=== PATIENT | female | born 1955 | race Caucasian/White ===

== ENCOUNTER 2018-03-15 22:51 | Inpatient (IN) | payer OTHER, MEDICAID, SELFPAY ==
[2018-03-15 22:55] VITALS: BP 146/44; PULSE 98; RESP 12; TEMP 36.5; O2SAT 100; BMI 28.1
--- NOTE | 2018-03-15 23:25 | DI.CT.S_ITS ---
PROCEDURE: CT ABDOMEN PELVIS W CON INDICATIONS: abdominal pain, vomiting/diarrhea/history of volvulus TECHNIQUE: After the administration of intravenous contrast, 5 mm thick sections acquired from the diaphragm to the symphysis. 5 mm coronal and sagittal reformats were acquired. For radiation dose reduction, the following was used: automated exposure control, adjustment of mA and/or kV according to patient size. COMPARISON: None. FINDINGS: Image quality: Excellent. ABDOMEN: Lung bases: Lung bases are clear. Heart size is normal. Solid organs: Liver is normal in size and enhancement. There is a 2.2 cm hepatic cyst identified near the left lateral margin of the lateral segment of the left hepatic lobe.Gallbladder appears mildly distended likely related to fasting state. Biliary system is non dilated. Pancreas enhances normally. Minimal prominence of the proximal segment of the main pancreatic duct without suspicious mass lesions in the pancreatic head or joellen hepatis. Spleen is normal in size and enhancement. No adrenal nodules. Kidneys demonstrate normal size and enhancement, without hydronephrosis. Peritoneum and bowel: There is distention of the stomach without abnormal thickening or perigastric inflammatory change. Numerous loops of dilated small bowel with scattered air-fluid levels identified in the mid abdomen with abrupt transition point in the lower midline abdomen just proximal to surgical anastomotic site from prior partial small bowel resection. The small bowel distal to this anastomosis appears decompressed as well as the colon. There is minimal stranding surrounding a short segment of small bowel proximal to the anastomosis. Otherwise, there appears to be symmetric normal enhancement. No suspicious bowel wall thickening. There is a small amount of scattered free fluid, mostly in the pelvis. No free air seen. Nodes and vessels: No retroperitoneal or mesenteric adenopathy by size criteria. Aorta and inferior vena cava are normal in size. Miscellaneous: No ventral hernias. PELVIS: Genitourinary: Bladder wall thickness is normal. Miscellaneous: No inguinal hernias or adenopathy. Bones: No suspicious bony lesions. No vertebral body compression fractures. IMPRESSION: 1. Small bowel obstruction with transition point identified just distal to the anastomotic suture line from prior bowel resection noted in the lower midline abdomen/pelvis, slightly left of midline. Findings are suggestive of small bowel obstruction secondary to adhesions. 2. Other chronic findings as above. Preliminary findings were relayed to the emergency department staff at 0133 hrs on 03/16/2018. Dictated by: Sancho Vieira M.D. on 03/16/2018 at 6:44 Approved by: Sancho Vieira M.D. on 03/16/2018 at 7:07
[2018-03-15 23:30] VITALS: BP 136/71; PULSE 88; RESP 17; O2SAT 98
--- NOTE | 2018-03-15 23:32 | ED_ITS ---
HPI - Abdominal Pain General Chief Complaint: Abdominal Pain Stated Complaint: ABD PAIN Time Seen by Provider: 03/15/18 23:15 Source: patient and family () Mode of arrival: ambulatory Limitations: no limitations History of Present Illness HPI narrative: This is a 62-year-old female comes to the emergency department with complaint of abdominal pain patient states she was having a lot of gas earlier this week took a lot of Gas-X which caused constipation. She states been drinking a bottle of magnesium citrate which then caused a of diarrhea yesterday. Patient continues to some diarrhea today but then started having vomiting evening increasing abdominal pain. She points to the epigastric area but states it radiates into the mid abdomen as well. She states she had similar pain once before when she had her got twisted up and to have a portion chopped out. Patient states she has continued to have vomiting here in the department and does have a bag of emesis with food in it in the room. She has not had any fevers, no chest pain or shortness of breath. The pain is not moving in location. She states it feels sharp and twisting. She denies any urinary issues other than having decreased urine output but states she has not had much fluids recently. She has not had any black or blood in her stool. She denies any other abdominal surgeries. She takes medication for blood pressure, anxiety and occasionally from migraines. Related Data Home Medications Medication Instructions Recorded Confirmed nortriptyline 75 mg PO HS #0 01/05/16 03/16/18 propranolol 20 mg PO DAILY #0 01/05/16 03/16/18 sumatriptan succinate [Imitrex] 100 mg PO PRN PRN #0 01/05/16 03/16/18 Allergies Allergy/AdvReac Type Severity Reaction Status Date / Time No Known Drug Allergies Allergy Verified 03/15/18 23:06 Review of Systems Review of Systems ROS Unobtainable: All systems reviewed & are unremarkable except as noted in HPI and below Constitutional Denies chills and Denies fever(s) Cardiovascular Denies chest pain, Denies dyspnea and Denies dyspnea on exertion Respiratory Denies dyspnea and Denies dyspnea on exertion Gastrointestinal Gastrointestinal: Reports abdominal pain, Denies melena, Denies hematochezia, Reports change in bowel habits, Reports diarrhea, Reports nausea, Reports vomiting and Denies hematemesis Genitourinary Denies hematuria, Denies urinary frequency, Denies dysuria, Denies flank pain, Denies urinary incontinence, Denies urinary urgency and Reports other (decrease in urine output) Musculoskeletal Denies back pain PFSH Medical History Diabetes (Acute) Hypertension (Acute) Family History Brother Hypertension Grandfather Diabetes mellitus Mother Diabetes mellitus Hypertension Sister Hypertension Social History Smoking Status: Unknown if ever smoked substance use type: marijuana Exam Narrative Exam Narrative: GENERAL: Alert and oriented x three, thin, well-appearing female in moderate distress. Patient vomited twice while I was in the room. HEENT: Head normocephalic, atraumatic, EOMI, pupils reactive, face symmetric, moist mucous membranes NECK: Supple, full range of motion CARDIOVASCULAR: Regular rate and rhythm without murmurs, rubs or gallops. RESPIRATORY: Breath sounds equal bilaterally, no wheezes rales or rhonchi. ABDOMEN: Soft, moderate epigastric and bilateral upper quadrant tenderness. Hypoactive bowel sounds all 4 quadrants. No guarding or rebound, rigidity, no mass : No CVA tenderness. EXTREMITIES: Normal range of motion, no clubbing or edema. Neurovascularly intact NEUROLOGICAL: Cranial nerves II through XII grossly intact. Moving all extremities SKIN: Warm, dry, no petechiae, no rashes or lesions. Initial Vital Signs Initial Vital Signs: Vital Signs Temperature 97.7 F 03/15/18 22:55 Pulse Rate 98 H 03/15/18 22:55 Respiratory Rate 12 03/15/18 22:55 Blood Pressure 146/44 H 03/15/18 22:55 Pulse Oximetry 100 03/15/18 22:55 Course Orders Ordered: ED Orders 03/15/18 23:25 CT abdomen pelvis w con Stat 03/15/18 23:30 Complete Blood Count AUTO DIFF Stat Comprehensive Metabolic Panel Stat Lactate (Lactic Acid) Stat Lipase Stat Discontinued Medications Sodium Chloride (Normal Saline 0.9%) 1,000 mls @ 1,000 mls/hr IV BOLUS ONE Stop: 03/16/18 00:15 Last Infusion: 03/16/18 01:10 Dose: 0 mls/hr Admin: 03/15/18 23:33 Dose: 1,000 mls/hr Morphine Sulfate (Morphine) 4 mg IV NOW ONE Stop: 03/15/18 23:26 Last Admin: 03/15/18 23:33 Dose: 4 mg Morphine Sulfate (Morphine) 4 mg IV NOW ONE Stop: 03/16/18 01:09 Last Admin: 03/16/18 01:22 Dose: 4 mg Ondansetron HCl (Zofran) 4 mg IV NOW ONE Stop: 03/15/18 23:26 Last Admin: 03/15/18 23:33 Dose: 4 mg Ondansetron HCl (Zofran) 4 mg IV NOW ONE Stop: 03/16/18 01:09 Last Admin: 03/16/18 01:22 Dose: 4 mg Vital Signs - 8 hr 03/15/18 22:55 03/15/18 23:30 03/16/18 00:46 Temperature 97.7 F Pulse Rate 98 H 88 85 Respiratory Rate 12 17 Blood Pressure 146/44 H Blood Pressure [Right Arm] 136/71 113/45 L Pulse Oximetry 100 98 98 03/16/18 01:00 03/16/18 02:00 Temperature Pulse Rate 85 80 Respiratory Rate 15 16 Blood Pressure Blood Pressure [Right Arm] 127/64 135/66 Pulse Oximetry 100 100 MDM - Abdominal Pain Lab Data Attestation: I reviewed the patient's lab results. Result diagrams: 03/15/18 23:30 03/15/18 23:30 Lab Results 03/15/18 03/15/18 03/15/18 Range/Units 23:30 23:30 23:30 WBC 12.8 H (4.5-11.0) X10^3/uL RBC 4.95 (4.0-5.2) X10^6/uL Hgb 14.4 (12.0-16.0) g/dL Hct 42.8 (36-46) % MCV 86.5 (80-100) fL MCH 29.1 (26-34) PG MCHC 33.6 (30-36) % RDW 12.8 (11.6-14.8) % Plt Count 384 (150-400) X10^3/uL Neut % (Auto) 72.2 (50-75) % Lymph % (Auto) 20.1 L (25-40) % [place] % (Auto) 6.7 (3-14) % Eos % (Auto) 0.5 L (2-4) % Baso % (Auto) 0.5 (0-2) % Neut # (Auto) 9200 H (4667-8703) /uL Lymph # (Auto) 2600 (3250-8414) /uL [place] # (Auto) 900 (0-900) /uL Eos # (Auto) 100 (0-450) /uL Baso # (Auto) 100 (0-100) /uL Sodium 138 (137-145) mmol/L Potassium 4.1 (3.4-5.1) mmol/L Chloride 101 (98-107) mmol/L Carbon Dioxide 26 (22-32) mmol/L BUN 13 (7-17) mg/dL Creatinine 0.60 (0.52-1.04) mg/dL Estimated GFR > 60.0 (>60) mL/min BUN/Creatinine Ratio 21.7 (6-22) Glucose 121 H (80-110) mg/dL Lactate 0.9 (0.7-2.1) mmol/L Calcium 10.0 (8.4-10.2) mg/dL Total Bilirubin 0.6 (0.2-1.3) mg/dL AST 20 (14-36) IU/L ALT 25 (9-52) IU/L Alkaline Phosphatase 97 (38-126) U/L Total Protein 7.9 (6.3-8.2) g/dL Albumin 4.7 (3.5-5.0) g/dL Globulin 3.2 (1.7-4.1) g/dL Albumin/Globulin Ratio 1.5 (1.0-2.8) Lipase 80 (23-300) U/L Imaging Data CT scan - abdomen: Radiologist's impression: 1.5 x 2 cm simple cyst left lobe of the liver. Fatty infiltration. Dilated fluid low filled loops of small bowel with scattered air-fluid levels and a pattern suggesting small bowel obstruction. Anastomotic changes are noted of small bowel in the pelvis. Just distal to the anastomosis there is an abrupt luminal narrowing suggesting obstruction due to adhesion. No obstructive or inflammatory process of the colon is identified. No free fluid is noted dependently in the pelvis. No free air. MDM Narrative Medical decision making narrative: Patient's pain and vomiting improved shortly after morphine and Zofran were given. Patient lab work shows a slight elevation in white count but no other major changes in electrolytes, renal function or hemoglobin. Patient had a CT which does show findings concerning for bowel obstruction. Patient's pain did start to return and she received a 2nd dose of morphine and Zofran. Spoke with our [facility] A[facility]ST Don who accepts patient. He did ask for surgical consultation and I spoke with Dr. Berg who says he will see her in the morning. He did review patient's CT imaging as well as radiology report and recommend an NG tube. Discharge Plan Departure Patient Disposition: Admitted as Observation Clinical Impression: Partial bowel obstruction Admit Date/Time: 03/16/18 02:04 Admit Provider: Troy Ochoa
[2018-03-15] MEDS: ONDANSETRON 4 MG/2 ML INJ IV (23:33)
[2018-03-15] MEDS: SODIUM CHLORIDE 0.9% 1,000 ML 1000 ML IV (23:33)
[2018-03-15] MEDS: MORPHINE 4 MG/ML INJ IV (23:33)
[2018-03-15 23:50] LABS: Add Manual Diff / Slide Review NO; Basophils Absolute Auto 100 /uL (0-100); Basophils Percent Auto 0.5 % (0-2); Eosinophils Absolute Auto 100 /uL (0-450); Eosinophils Percent Auto 0.5 % (2-4); Hematocrit 42.8 % (36-46); Hemoglobin 14.4 g/dL (12.0-16.0); Lymphocytes Absolute Auto 2600 /uL (1100-4500); Lymphocytes Percent Auto 20.1 % (25-40); Mean Corpuscular HGB Conc 33.6 % (30-36); Mean Corpuscular Hemoglobin 29.1 PG (26-34); Mean Corpuscular Volume 86.5 fL (80-100); Monocytes Absolute Auto 900 /uL (0-900); Monocytes Percent Auto 6.7 % (3-14); Neutrophils Absolute Auto 9200 /uL (1500-7000); Neutrophils Percent Auto 72.2 % (50-75); Platelet Count 384 X10^3/uL (150-400); Red Blood Cell Count 4.95 X10^6/uL (4.0-5.2); Red Cell Distribution Width 12.8 % (11.6-14.8); White Blood Cell Count 12.8 X10^3/uL (4.5-11.0)
[2018-03-15 23:58] LABS: Lactate (Lactic Acid) 0.9 mmol/L (0.7-2.1)
[2018-03-15 23:59] LABS: Alanine Aminotransferase 25 IU/L (9-52); Albumin 4.7 g/dL (3.5-5.0); Albumin Globulin Ratio 1.5 (1.0-2.8); Alkaline Phosphatase 97 U/L (38-126); Aspartate Aminotransferase 20 IU/L (14-36); BUN Creatinine Ratio 21.7 (6-22); Bilirubin Total 0.6 mg/dL (0.2-1.3); Blood Urea Nitrogen 13 mg/dL (7-17); Carbon Dioxide 26 mmol/L (22-32); Chloride 101 mmol/L (98-107); Estimated Glomerular Filt Rate > 60.0 mL/min (>60); Globulin 3.2 g/dL (1.7-4.1); Glucose 121 mg/dL (80-110); HEMOLYSIS < 15 (0-50); Lipase 80 U/L (23-300); Potassium 4.1 mmol/L (3.4-5.1); Sodium 138 mmol/L (137-145); Total Protein 7.9 g/dL (6.3-8.2)
[2018-03-16] VITALS (12 sets, daily range): BP systolic 107–155; BP diastolic 45–95; PULSE 71–98; RESP 15–20; TEMP 36.4–36.7; O2SAT 94–100; BMI 27.7
--- NOTE | 2018-03-16 | DI.RAD.S_ITS ---
PROCEDURE: FL SMALL BOWEL FOLLOW THROUGH INDICATIONS: SBFT TIMED EXAMS COMPARISON: CT abdomen and pelvis dated 03/15/2018. 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 Oral contrast was administered for recent CT abdomen and pelvis dated 03/15/2018. Oral contrast has also been placed in the stomach via nasogastric tube. No suspicious abdominal calcifications. Visualized solid organ contours appear normal. No suspicious bony abnormalities. Small bowel: There appears to be transit of some oral contrast to the level of the splenic flexure at the end of the study. Oral contrast has cleared the stomach. Mucosal folds are smooth and of normal thickness. No strictures, intraluminal masses, or extrinsic mass effects are noted. There are several surgical clips in the lower abdomen with bilateral tubal ligation clips identified in the pelvis. The surgical anastomosis is not well-visualized on this study. IMPRESSION: Persistent but decreased prominence of distended small bowel with some transit of oral contrast to the level of the splenic flexure. Findings are compatible with ileus versus partial small bowel obstruction. Consider repeat imaging of the abdomen to document continued transit of oral contrast. Dictated by: Sancho Vieira M.D. on 03/16/2018 at 22:47 Approved by: Sancho Vieira M.D. on 03/16/2018 at 23:01
[2018-03-16] MEDS: ONDANSETRON 4 MG/2 ML INJ IV ×4 (01:22→20:06)
[2018-03-16] MEDS: MORPHINE 4 MG/ML INJ IV (01:22)
--- NOTE | 2018-03-16 02:48 | DI.RAD.S_ITS ---
PROCEDURE: XR CHEST 1V INDICATIONS: NG Tube placement verification. TECHNIQUE: One view of the chest was acquired. COMPARISON: None. FINDINGS: Surgical changes and devices: Nasogastric tube is in place with distal tip extending below the level of the diaphragm, projecting over the left lateral upper abdomen.. Lungs and pleura: No pleural effusions or pneumothorax. Lungs are clear. Mediastinum: Mediastinal contours appear normal. Heart size is normal. Bones and chest wall: No suspicious bony lesions. Overlying soft tissues appear unremarkable. IMPRESSION: Nasogastric tube placement with the distal tip and side-port extending below the level of the diaphragm. Chest without acute cardiopulmonary abnormalities. Dictated by: Sancho Vieira M.D. on 03/16/2018 at 7:43 Approved by: Sancho Vieira M.D. on 03/16/2018 at 7:44
--- NOTE | 2018-03-16 03:25 | P.HP_ITS ---
History of Present Illness Date Patient Seen: 03/16/18 Time Patient Seen: 02:11 Chief complaint: ABD PAIN Narrative: Lucas Palma is a 62-year-old female patient with a history of prior small bowel obstruction requiring surgical intervention some 20 years ago , hypertension and migraines who presents today the ER with complaints of abdominal pain nausea and vomiting. The patient reports that she had been feeling listless for approximately 2 weeks but approximately 4 days ago the patient developed ?bad gas? and bloating for which she took Gas-X. At that time the patient relies she had not had a bowel movement for 3 days and took magnesium citrate to which she reports a good response having soft yellow stool. Her symptoms became progressive and worsened today developing nausea and vomiting. Her last bowel movement was today approximately 11:30 she describes as liquid. Patient also endorses history of migraine headaches which will occur approximately 2-3 times per month for which she takes sumatriptan. She also describes history of hypertension for which she takes propranolol and anxiety for which she takes nortriptyline. She had [place] history of diabetes that is diet controlled. The patient denies current symptoms of fevers or chills, headaches or dizziness. She has no shortness of breath or chest pain. In the ER the patient is received morphine and Zofran with decrease in symptoms. A CT of the abdomen was obtained revealing a small bowel obstruction with a transition point distal the patient's small-bowel anastomosis in the pelvis described as left of midline, small amount of free fluid with no free air. Lab work obtained in the ER showed an elevated white count at 12.8, and H& H of 14.4 and 42.8 respectively. On chemistry she has a glucose of 121 with remainder of the panel within normal limits. Her LFTs within normal as well as lipase normal at 80. Lactate is 0.9. was contacted by the ER for consultation and will evaluate the patient in the morning. Patient History Medical History Anxiety (Acute) Diabetes (Acute) History of small bowel obstruction (Acute) Hypertension (Acute) Migraine headache (Acute) Surgical History History of appendectomy (Acute) History of bunionectomy of both great toes (Acute) History of tubal ligation (Acute) Family & Social History Family History: Reviewed 03/16/18 by ESTEILTA Crabtree Social History: The patient is single and lives in a single family home with her significant other. They have been together for 18 years. Patient has a daughter who resides in [place] and his son who resides locally. The patient is currently working in [employer]. Advanced directive: The patient has no formal advanced directive however does needs her significant other, Graeme Lott, and her son Chinedu Harrell, to be surrogate decision makers Safety & Behavioral: Feels Safe in Current Yes Environment Tobacco & Substance use: Smoking Status Unknown if ever smoked Comment: . Meds Home Medications Medication Instructions Recorded Confirmed Type nortriptyline 75 mg PO HS #0 01/05/16 03/16/18 History propranolol 20 mg PO DAILY #0 01/05/16 03/16/18 History sumatriptan succinate [Imitrex] 100 mg PO PRN PRN #0 01/05/16 03/16/18 History Allergies Allergy/AdvReac Type Severity Reaction Status Date / Time No Known Drug Allergies Allergy Verified 03/15/18 23:06 Review of Systems Review of Systems Constitutional: Positive for fatigue and malaise, poor appetite, Denies fevers , chills, sweats, stable weight Eyes: Positive for glasses, Denies visual changes, denies floaters, diplopia ENT: Denies headaches, hearing changes, ear pain, no nasal congestion, rhinorrhea, no dysphagia, sore throat or dentalgia, no neck stiffness or pain Respiratory: Denies SOB, cough, exertional dyspnea, wheezing Cardiovascular: Positive for history of ectopy, hypertension, Denies chest pain , does not feel palpitations, no orthostatic dizziness, syncope, edema Gastrointestinal: Positive for abdominal distention epigastric tenderness, bloating, nausea vomiting, Denies denies blood in stool. Genitourinary: Positive for postmenopausal, denies vaginal discharge, no complains of frequency, burning or urgency, hematuria on voiding Musculoskeletal: Positive for history of lumbar strain, sciatica, denies falls , weakness, limited movement, cramps, edema, joint swelling. Integumentary: denies skin lesions, masses, rashes, hives, itching or hair loss Neurological: Positive for history of migraines, denies dizziness, confusion, numbness or tingling, speech difficulties or seizures Psychiatric: Positive for history of anxiety, denies disturbances in thought, attentions or mood, denies substance abuse Endocrine: denies goiter, lethargy, abnormal sweating, and heat/cold intolerance. Heme/lymph: Denies lymphadenopathy, abnormal bleeding or bruising Exam Vital Signs (past 8 hours): - 03/15/18 22:55 03/15/18 23:30 03/16/18 00:46 Temperature 97.7 F Pulse Rate 98 H 88 85 Respiratory Rate 12 17 Blood Pressure 146/44 H Blood Pressure [Right Arm] 136/71 113/45 L Pulse Oximetry 100 98 98 03/16/18 01:00 03/16/18 02:00 Temperature Pulse Rate 85 80 Respiratory Rate 15 16 Blood Pressure Blood Pressure [Right Arm] 127/64 135/66 Pulse Oximetry 100 100 Oxygen Delivery Method Room Air Narrative Exam Narrative: General: Well developed, overweight female with BMI 28.2, uncomfortable appearing Skin: Warm, dry, pink, no rashes, no visible lesions HEENT: Normocephalic, PERRLA, EOMs intact without nystagmus, conjunctiva moist, sclera is anicteric, no ear pain, hearing grossly normal, no sinus tenderness to percussion, no rhinorrhea, oropharynx is moist and pink without lesions or exudate, uvula midline, posterior pharynx without inflammation, no cervical lymphadenopathy Neck: Supple, no masses, thyroid non tender without thyromegaly or nodules, trachea midline, no carotid bruits or JVD, no supraclavicular lymphadenopathy Cardiac: Regular rate, regular rhythm with occasional ectopy, S1-S2, no murmur appreciated, no gallops or rubs, 2+ radial pulse, 1+ dorsalis pedis pulse, capillary refill is brisk, no edema Chest: Symmetrical movement, breathing non labored, no cough present, BS equal bilateral without coarseness, crackles or wheezes Abdomen: Distended, firm, generalized tenderness without guarding, no masses or organomegaly, no flank or suprapubic pain, BS normal. Back: Normal curvature, no tenderness to palpation, no CVA tenderness on percussion Extremities: Full ROM, no synovial effusions or deformities, strength 5/5 and symmetrical, gait not assessed Neuro: AAOx4, cranial nerves II-XII grossly intact, distal sensation intact to light touch, no paresthesias Psych: pleasant, cooperative, thought coherent, stable mood and congruent affect Objective Labs Result Diagrams: 03/15/18 23:30 03/15/18 23:30 Labs: Laboratory Results - last 24 hr 03/15/18 03/15/18 03/15/18 23:30 23:30 23:30 WBC 12.8 H RBC 4.95 Hgb 14.4 Hct 42.8 MCV 86.5 MCH 29.1 MCHC 33.6 RDW 12.8 Plt Count 384 Neut % (Auto) 72.2 Lymph % (Auto) 20.1 L [place] % (Auto) 6.7 Eos % (Auto) 0.5 L Baso % (Auto) 0.5 Neut # (Auto) 9200 H Lymph # (Auto) 2600 [place] # (Auto) 900 Eos # (Auto) 100 Baso # (Auto) 100 Sodium 138 Potassium 4.1 Chloride 101 Carbon Dioxide 26 BUN 13 Creatinine 0.60 Estimated GFR > 60.0 BUN/Creatinine Ratio 21.7 Glucose 121 H Lactate 0.9 Calcium 10.0 Total Bilirubin 0.6 AST 20 ALT 25 Alkaline Phosphatase 97 Total Protein 7.9 Albumin 4.7 Globulin 3.2 Albumin/Globulin Ratio 1.5 Lipase 80 Assessment & Plan Plan: Assessment/Plan Narrative: 1. Partial small-bowel obstruction, present on admission, acute -onset of symptoms 4 days ago with abdominal bloating and alteration in stooling -developed nausea and vomiting approximately 18-1900 tonight -CT demonstrates bowel obstruction distal to prior small bowel anastomosis with air-fluid levels small amount of free fluid but no free air -Dr. Thomson, surgery is consulted and will evaluate the patient in the morning -NG tube to be placed by ER, cetacaine spray as needed for comfort -patient will be NPO -IV fluid normal saline at 125 mL/hour 2. Type 2 diabetes, present on admission, active -History of DM in medical record, the patient denies diabetes but has a strong family history -mildly elevated glucose with report of the patient not having oral intake -blood sugar on admission is 121 -will obtain a HgA1c -will check blood sugars q.6 hours and cover with low range sliding scale insulin 3. Hypertension, present on admission, stable -Patient normotensive in the ED -she takes propranolol and is unclear if she is taking the medication for hypertension or arrhythmia management -will continue beta-sebastián pharmacy contacted regarding IV equivalent for 20 mg propranolol, will give metoprolol 2.5 mg IV q6h. -Patient will be on telemetry. 4. Cardiac ectopy, present on admission, presumed stable -patient reports history of extra heartbeats but does not feel palpitations -patient is currently taking propranolol which may be for hypertension or arrhythmia management -no complaints of chest pain or shortness of breath -will continue beta-sebastián therapy as described above 5. Migraine headaches, not present on admission, chronic -migraines occur 2-3 times monthly there treated with sumatriptan -the patient is NPO, will order Imitrex 6 mg subcutaneously as needed Patient will be admitted as an inpatient due to severity illness and potential for complications.
[2018-03-16] MEDS: SODIUM CHLORIDE 0.9% FLUSH 10 ML IV (04:02)
[2018-03-16] MEDS: SODIUM CHLORIDE 0.9% 1,000 ML 125 ML IV ×3 (04:02→19:58)
--- NOTE | 2018-03-16 04:29 | PC.ADMIT ---
Addendum entered by Albina Rodriguez R.N. 03/16/18 06:36: Genna CAPONE aware that Zofran and Morphine given early due to dry heaves/pain and okayed early administration. Patient is currently asleep. Has not voided since prior to arrival in ER; FINANCIAL RECORDING CLERK aware. Original Note: Addendum entered by Albina Rodriguez R.N. 03/16/18 05:42: Complains of 3/10 RLQ abdominal pain described as dull; medicated with Morphine. Also complains of nausea and is dry heaving; medicated with Zofran. Provided spray of Cetacaine for throat discomfort. Original Note: Patient admitted at 0306 to room 204 via stretcher from ER. NG already placed prior to arrival; connected to LIS. Is alert and oriented. Breath sounds diminished throughout but CTA with RA sat of 99%. HRR. BP elevated at 155/95. Denies nausea. BT hypoactive but abdomen is soft and non tender. Denies any pain at present time. Denies dysuria, frequency, urgency or incontinence. Fall risk score is low. Instructed to call for assistance when needing to get out of bed due to NG tube. Oriented to call light and bed controls. Plan of care reviewed with patient and significant other. [id number] Admission Note: The patient,Lucas Palma,62 y/o, was given written information regarding hospital policies, unit procedures and contact persons. Patient's smoking status: Former smoker. Vital Signs - 8 hr 03/15/18 22:55 03/15/18 23:30 03/16/18 00:46 Temperature 97.7 F Pulse Rate 98 H 88 85 Respiratory Rate 12 17 Blood Pressure 146/44 H Blood Pressure [Right Arm] 136/71 113/45 L Pulse Oximetry 100 98 98 03/16/18 01:00 03/16/18 02:00 03/16/18 02:50 Temperature Pulse Rate 85 80 98 H Respiratory Rate 15 16 15 Blood Pressure Blood Pressure [Right Arm] 127/64 135/66 107/76 Pulse Oximetry 100 100 98 03/16/18 03:10 03/16/18 03:28 Temperature 97.8 F 99.8 F H Pulse Rate 90 90 Respiratory Rate 17 17 Blood Pressure 155/95 H 155/95 H Blood Pressure [Right Arm] Pulse Oximetry 97 99
[2018-03-16] MEDS: MORPHINE 2 MG/ML INJ IV ×3 (05:33→13:35)
[2018-03-16] MEDS: TETRACAINE/BENZOCAINE/BUTAMBEN (CETACAINE) BOTTLE 1 SPRAY TOP ×2 (05:40→15:23)
[2018-03-16 06:31] LABS: Add Manual Diff / Slide Review NO; Basophils Absolute Auto 100 /uL (0-100); Basophils Percent Auto 0.6 % (0-2); Eosinophils Absolute Auto 100 /uL (0-450); Eosinophils Percent Auto 0.7 % (2-4); Hematocrit 39.4 % (36-46); Hemoglobin 13.3 g/dL (12.0-16.0); Lymphocytes Absolute Auto 2900 /uL (1100-4500); Lymphocytes Percent Auto 30.6 % (25-40); Mean Corpuscular HGB Conc 33.7 % (30-36); Mean Corpuscular Hemoglobin 29.4 PG (26-34); Mean Corpuscular Volume 87.1 fL (80-100); Monocytes Absolute Auto 900 /uL (0-900); Monocytes Percent Auto 9.4 % (3-14); Neutrophils Absolute Auto 5600 /uL (1500-7000); Neutrophils Percent Auto 58.7 % (50-75); Platelet Count 327 X10^3/uL (150-400); Red Blood Cell Count 4.52 X10^6/uL (4.0-5.2); Red Cell Distribution Width 12.7 % (11.6-14.8); White Blood Cell Count 9.5 X10^3/uL (4.5-11.0)
[2018-03-16 06:38] LABS: Hemoglobin A1C% w Est Avg Glu 5.6 % (4.0-6.0)
[2018-03-16 07:06] LABS: BUN Creatinine Ratio 18.3 (6-22); Blood Urea Nitrogen 11 mg/dL (7-17); Calcium 8.9 mg/dL (8.4-10.2); Carbon Dioxide 28 mmol/L (22-32); Chloride 102 mmol/L (98-107); Estimated Glomerular Filt Rate > 60.0 mL/min (>60); Glucose 113 mg/dL (80-110); HEMOLYSIS < 15 (0-50); Magnesium 2.4 mg/dL (1.6-2.3); Potassium 3.9 mmol/L (3.4-5.1); Sodium 140 mmol/L (137-145)
--- NOTE | 2018-03-16 08:33 | P.PN_ITS ---
Subjective Date Patient Seen: 03/16/18 Time Patient Seen: 08:44 Interval history: She is seen today to follow-up the small-bowel obstruction, hypertension and history of migraines. An NG tube is still in place. A surgical consult has been requested. She describes that her initial abdominal condition from 20 years ago was a benign mass in the small bowel that cause an obstruction at that time. The CT scan shows that this obstruction appears to be ?distal to the anastomosis?. Her primary care is with Dr. Damián Benjamin in [facility]. Exam Vital Signs (past 8 hours): - 03/16/18 00:46 03/16/18 01:00 03/16/18 02:00 Temperature Pulse Rate 85 85 80 Respiratory Rate 15 16 Blood Pressure Blood Pressure [Right Arm] 113/45 L 127/64 135/66 Pulse Oximetry 98 100 100 03/16/18 02:50 03/16/18 03:10 Temperature 97.8 F Pulse Rate 98 H 90 Respiratory Rate 15 17 Blood Pressure 155/95 H Blood Pressure [Right Arm] 107/76 Pulse Oximetry 98 97 Oxygen Delivery Method Room Air Oxygen Flow Rate 0 Narrative Exam Narrative: She is alert and oriented x3. There is no apparent distress. Heart is regular rate and rhythm without murmur. Lungs are clear to auscultation bilaterally. Extremities have no ankle edema. The abdomen is soft , without distention. Bowel sounds are active. There is no tenderness. There is a right-sided NG tube in place. She appears to be holding herself stiff, guarding/avoiding movements that might exacerbate her abdominal pain. Objective Labs Result Diagrams: 03/16/18 06:10 03/16/18 06:10 Labs: Laboratory Results - last 24 hr 03/15/18 03/15/18 03/15/18 23:30 23:30 23:30 WBC 12.8 H RBC 4.95 Hgb 14.4 Hct 42.8 MCV 86.5 MCH 29.1 MCHC 33.6 RDW 12.8 Plt Count 384 Neut % (Auto) 72.2 Lymph % (Auto) 20.1 L [place] % (Auto) 6.7 Eos % (Auto) 0.5 L Baso % (Auto) 0.5 Neut # (Auto) 9200 H Lymph # (Auto) 2600 [place] # (Auto) 900 Eos # (Auto) 100 Baso # (Auto) 100 Sodium 138 Potassium 4.1 Chloride 101 Carbon Dioxide 26 BUN 13 Creatinine 0.60 Estimated GFR > 60.0 BUN/Creatinine Ratio 21.7 Glucose 121 H Hemoglobin A1c Lactate 0.9 Calcium 10.0 Magnesium Total Bilirubin 0.6 AST 20 ALT 25 Alkaline Phosphatase 97 Total Protein 7.9 Albumin 4.7 Globulin 3.2 Albumin/Globulin Ratio 1.5 Lipase 80 03/16/18 03/16/18 03/16/18 06:10 06:10 06:10 WBC 9.5 RBC 4.52 Hgb 13.3 Hct 39.4 MCV 87.1 MCH 29.4 MCHC 33.7 RDW 12.7 Plt Count 327 Neut % (Auto) 58.7 Lymph % (Auto) 30.6 [place] % (Auto) 9.4 Eos % (Auto) 0.7 L Baso % (Auto) 0.6 Neut # (Auto) 5600 Lymph # (Auto) 2900 [place] # (Auto) 900 Eos # (Auto) 100 Baso # (Auto) 100 Sodium 140 Potassium 3.9 Chloride 102 Carbon Dioxide 28 BUN 11 Creatinine 0.60 Estimated GFR > 60.0 BUN/Creatinine Ratio 18.3 Glucose 113 H Hemoglobin A1c 5.6 Lactate Calcium 8.9 Magnesium 2.4 H Total Bilirubin AST ALT Alkaline Phosphatase Total Protein Albumin Globulin Albumin/Globulin Ratio Lipase Assessment & Plan (1) Partial bowel obstruction: Problem details: This appears to be at a typical anastomosis site. Surgical consult is pending. NG tube decompression is in place. IV fluid support is in place. Qualifiers: Intestinal obstruction type: Current visit: Yes Status: Acute (2) Diabetes: Problem details: States she does not have diabetes, an A1c is pending. Current visit: Yes Status: Acute (3) Essential hypertension: Problem details: Using IV metoprolol, to substitute for her usual oral propanolol. Current visit: Yes Status: Acute Quality VTE Deep Vein Thrombosis/Pulmonary Embolism Present on Admission: No
[2018-03-16] MEDS: LORazepam 2 MG/ML SYRINGE 0.5 MG IV ×2 (09:40→16:06)
[2018-03-16] MEDS: SUMAtriptan 6 MG/0.5 ML VIAL SUBCUT ×2 (09:49→20:06)
[2018-03-16] MEDS: METOPROLOL TARTRATE 5 MG/5 ML INJ 2.5 MG IV ×3 (09:53→19:59)
--- NOTE | 2018-03-16 10:39 | CM.DANOTE ---
Discharge Planning/Care Management CM Discharge Assessment Start: 03/16/18 10:33 Freq: Status: Active Protocol: Document 03/16/18 10:34 (Rec: 03/16/18 10:38 [id number]) Discharge Planning Assessment Assigned Housekeeper RICHARD Elizalde Advance Directives? No History Provided By Patient Medical Record Has Patient been admitted in last 30 No days? Prior Living Arrangements House Household Members significant other family Type of transporation used prior to Drives own vehicle admit Independent with ADL's Yes Is patient alert and oriented? Yes Caregiver for Another No Barriers to Discharge No Discharge Plan Home Transportation Arrangement Spouse will provide Referrals Initiated None needed Inpatient Status as of 03/16/18 Comment Pt. admitted for SBO. Primary payer is [employer] and PCP is Nelson Dozier? Patient is pending surg consult, has NG tube placed and is NPO. Met with patient: Patient is hopeful she will be able to avoid surgical interventions and does not anticipate any discharge needs or concerns. Whiteboard Updated in Patient Room with Yes name and ext. # of Housekeeper Review Status In Process Please Provide Date Initial DC 03/16/18 Assessment Was Performed Next Review Type Continued Stay Review
--- NOTE | 2018-03-16 11:12 | PM.CN ---
History of Present Illness Date Patient Seen: 03/16/18 Time Patient Seen: 11:00 Chief complaint: ABD PAIN Reason for consult: Small-bowel obstruction Requesting provider: Cierar Pepe Narrative: The patient is a woman who had an abdominal operation for an obstruction 20 or more years ago. That is the only operation she has had on her abdomen. About 3 days ago she noticed she was having a lot of gas and took Gas-X. She followed that with a laxative and began having multiple bowel movements that were liquid. She also was vomiting. She presented to the emergency room with abdominal pain late last night or early this morning and was found on CT to have evidence of a possible obstruction. She had marked dilatation of her stomach and an NG tube was placed and she was admitted. I was asked to see her. Patient says that she is not having any pain right now in her abdomen. [facility] Medical History Migraine headache (Acute) Anxiety (Chronic) Hypertension (Chronic) History of small bowel obstruction (Inactive) Surgical History History of appendectomy (Resolved) History of bunionectomy of both great toes (Resolved) History of exploratory laparotomy (Resolved) History of tubal ligation (Resolved) Family History Brother Hypertension Grandfather Diabetes mellitus Mother Diabetes mellitus Hypertension Sister Hypertension Lupus (systemic lupus erythematosus) Father Diabetes mellitus Social History household members: significant other and family Smoking Status: Former smoker alcohol intake: current substance use type: marijuana Meds Home Medications Medication Instructions Recorded Confirmed Type nortriptyline 75 mg PO HS #0 01/05/16 03/16/18 History propranolol 20 mg PO DAILY #0 01/05/16 03/16/18 History sumatriptan succinate [Imitrex] 100 mg PO PRN PRN #0 01/05/16 03/16/18 History Allergies Allergy/AdvReac Type Severity Reaction Status Date / Time No Known Drug Allergies Allergy Verified 03/15/18 23:06 Review of Systems Review of Systems Patient has no double vision, pain in her eyes, earache , sore throat. She has a migraine headache. No tooth aches or trouble swallowing. No chest pain or heart problems or murmurs. No cough cold or asthma. No blood in her urine or kidney stones in the past. No problems with her breasts or breast masses. No seizures or blackouts. She does suffer from anxiety. No bipolar disease. No problems with her pancreas or thyroid that she is aware of. No unusual bruising or bleeding. Exam Vital Signs (past 8 hours): - 03/16/18 08:00 Temperature 97.5 F L Pulse Rate 86 Respiratory Rate 16 Blood Pressure 131/83 Pulse Oximetry 98 Oxygen Delivery Method Room Air Oxygen Flow Rate 0 Narrative Exam Narrative: Very pleasant cooperative woman in no apparent distress. She is holding rather still because she has a cloth on her head for her headache and has an NG tube in place. Neck is supple. There are no nodes in the neck or supraclavicular areas. Lungs are clear to auscultation no rales or rhonchi. Equal percussion. Heart regular rate and rhythm without murmur gallop. No bruit in the neck. Her abdomen is scaphoid and soft. She has a vertical midline scar from the umbilicus down. There is a small hernia at the umbilicus that is easily reducible and nontender. The remainder abdomen is unremarkable except on deep palpation there may be some slight tenderness in the right abdomen. She is alert and oriented x3. Speech rate and content are appropriate. Affect is flat. Objective Imaging CT scan - abdomen: My impression: Patient has dilated loops of small bowel and a stomach filled with contents that is distended. Labs Result Diagrams: 03/16/18 06:10 03/16/18 06:10 Labs: Laboratory Results - last 24 hr 03/15/18 03/15/18 03/15/18 23:30 23:30 23:30 WBC 12.8 H RBC 4.95 Hgb 14.4 Hct 42.8 MCV 86.5 MCH 29.1 MCHC 33.6 RDW 12.8 Plt Count 384 Neut % (Auto) 72.2 Lymph % (Auto) 20.1 L [place] % (Auto) 6.7 Eos % (Auto) 0.5 L Baso % (Auto) 0.5 Neut # (Auto) 9200 H Lymph # (Auto) 2600 [place] # (Auto) 900 Eos # (Auto) 100 Baso # (Auto) 100 Sodium 138 Potassium 4.1 Chloride 101 Carbon Dioxide 26 BUN 13 Creatinine 0.60 Estimated GFR > 60.0 BUN/Creatinine Ratio 21.7 Glucose 121 H Hemoglobin A1c Lactate 0.9 Calcium 10.0 Magnesium Total Bilirubin 0.6 AST 20 ALT 25 Alkaline Phosphatase 97 Total Protein 7.9 Albumin 4.7 Globulin 3.2 Albumin/Globulin Ratio 1.5 Lipase 80 03/16/18 03/16/18 03/16/18 06:10 06:10 06:10 WBC 9.5 RBC 4.52 Hgb 13.3 Hct 39.4 MCV 87.1 MCH 29.4 MCHC 33.7 RDW 12.7 Plt Count 327 Neut % (Auto) 58.7 Lymph % (Auto) 30.6 [place] % (Auto) 9.4 Eos % (Auto) 0.7 L Baso % (Auto) 0.6 Neut # (Auto) 5600 Lymph # (Auto) 2900 [place] # (Auto) 900 Eos # (Auto) 100 Baso # (Auto) 100 Sodium 140 Potassium 3.9 Chloride 102 Carbon Dioxide 28 BUN 11 Creatinine 0.60 Estimated GFR > 60.0 BUN/Creatinine Ratio 18.3 Glucose 113 H Hemoglobin A1c 5.6 Lactate Calcium 8.9 Magnesium 2.4 H Total Bilirubin AST ALT Alkaline Phosphatase Total Protein Albumin Globulin Albumin/Globulin Ratio Lipase Assessment & Plan Plan: Assessment/Plan Narrative: Reviewed the films and the reports. Clinically patient appears to have improved overnight. She is not particularly distended. She was having flatus and bowel movements after laxative. There is however dilated loops of small bowel and stomach is dilated. Not sure how that fits into her history. In any event, we will perform a small bowel follow-through. I have asked they radio technician to use water-soluble contrast. The NG may be used to administer the contrast. Then it should be clamped. Nursing was made aware of this. Then the patient will get periodically films during the day to see how the contrast progresses.
--- NOTE | 2018-03-16 11:26 | P.CONS_ITS ---
History of Present Illness Date Patient Seen: 03/16/18 Time Patient Seen: 11:00 Chief complaint: ABD PAIN Reason for consult: Small-bowel obstruction Requesting provider: Cierra Pepe Narrative: The patient is a woman who had an abdominal operation for an obstruction 20 or more years ago. That is the only operation she has had on her abdomen. About 3 days ago she noticed she was having a lot of gas and took Gas-X. She followed that with a laxative and began having multiple bowel movements that were liquid. She also was vomiting. She presented to the emergency room with abdominal pain late last night or early this morning and was found on CT to have evidence of a possible obstruction. She had marked dilatation of her stomach and an NG tube was placed and she was admitted. I was asked to see her. Patient says that she is not having any pain right now in her abdomen. [facility] Medical History Migraine headache (Acute) Anxiety (Chronic) Hypertension (Chronic) History of small bowel obstruction (Inactive) Surgical History History of appendectomy (Resolved) History of bunionectomy of both great toes (Resolved) History of exploratory laparotomy (Resolved) History of tubal ligation (Resolved) Family History Brother Hypertension Grandfather Diabetes mellitus Mother Diabetes mellitus Hypertension Sister Hypertension Lupus (systemic lupus erythematosus) Father Diabetes mellitus Social History household members: significant other and family Smoking Status: Former smoker alcohol intake: current substance use type: marijuana Meds Home Medications Medication Instructions Recorded Confirmed Type nortriptyline 75 mg PO HS #0 01/05/16 03/16/18 History propranolol 20 mg PO DAILY #0 01/05/16 03/16/18 History sumatriptan succinate [Imitrex] 100 mg PO PRN PRN #0 01/05/16 03/16/18 History Allergies Allergy/AdvReac Type Severity Reaction Status Date / Time No Known Drug Allergies Allergy Verified 03/15/18 23:06 Review of Systems Review of Systems Patient has no double vision, pain in her eyes, earache , sore throat. She has a migraine headache. No tooth aches or trouble swallowing. No chest pain or heart problems or murmurs. No cough cold or asthma. No blood in her urine or kidney stones in the past. No problems with her breasts or breast masses. No seizures or blackouts. She does suffer from anxiety. No bipolar disease. No problems with her pancreas or thyroid that she is aware of. No unusual bruising or bleeding. Exam Vital Signs (past 8 hours): - 03/16/18 08:00 Temperature 97.5 F L Pulse Rate 86 Respiratory Rate 16 Blood Pressure 131/83 Pulse Oximetry 98 Oxygen Delivery Method Room Air Oxygen Flow Rate 0 Narrative Exam Narrative: Very pleasant cooperative woman in no apparent distress. She is holding rather still because she has a cloth on her head for her headache and has an NG tube in place. Neck is supple. There are no nodes in the neck or supraclavicular areas. Lungs are clear to auscultation no rales or rhonchi. Equal percussion. Heart regular rate and rhythm without murmur gallop. No bruit in the neck. Her abdomen is scaphoid and soft. She has a vertical midline scar from the umbilicus down. There is a small hernia at the umbilicus that is easily reducible and nontender. The remainder abdomen is unremarkable except on deep palpation there may be some slight tenderness in the right abdomen. She is alert and oriented x3. Speech rate and content are appropriate. Affect is flat. Objective Imaging CT scan - abdomen: My impression: Patient has dilated loops of small bowel and a stomach filled with contents that is distended. Labs Result Diagrams: 03/16/18 06:10 03/16/18 06:10 Labs: Laboratory Results - last 24 hr 03/15/18 03/15/18 03/15/18 23:30 23:30 23:30 WBC 12.8 H RBC 4.95 Hgb 14.4 Hct 42.8 MCV 86.5 MCH 29.1 MCHC 33.6 RDW 12.8 Plt Count 384 Neut % (Auto) 72.2 Lymph % (Auto) 20.1 L [place] % (Auto) 6.7 Eos % (Auto) 0.5 L Baso % (Auto) 0.5 Neut # (Auto) 9200 H Lymph # (Auto) 2600 [place] # (Auto) 900 Eos # (Auto) 100 Baso # (Auto) 100 Sodium 138 Potassium 4.1 Chloride 101 Carbon Dioxide 26 BUN 13 Creatinine 0.60 Estimated GFR > 60.0 BUN/Creatinine Ratio 21.7 Glucose 121 H Hemoglobin A1c Lactate 0.9 Calcium 10.0 Magnesium Total Bilirubin 0.6 AST 20 ALT 25 Alkaline Phosphatase 97 Total Protein 7.9 Albumin 4.7 Globulin 3.2 Albumin/Globulin Ratio 1.5 Lipase 80 03/16/18 03/16/18 03/16/18 06:10 06:10 06:10 WBC 9.5 RBC 4.52 Hgb 13.3 Hct 39.4 MCV 87.1 MCH 29.4 MCHC 33.7 RDW 12.7 Plt Count 327 Neut % (Auto) 58.7 Lymph % (Auto) 30.6 [place] % (Auto) 9.4 Eos % (Auto) 0.7 L Baso % (Auto) 0.6 Neut # (Auto) 5600 Lymph # (Auto) 2900 [place] # (Auto) 900 Eos # (Auto) 100 Baso # (Auto) 100 Sodium 140 Potassium 3.9 Chloride 102 Carbon Dioxide 28 BUN 11 Creatinine 0.60 Estimated GFR > 60.0 BUN/Creatinine Ratio 18.3 Glucose 113 H Hemoglobin A1c 5.6 Lactate Calcium 8.9 Magnesium 2.4 H Total Bilirubin AST ALT Alkaline Phosphatase Total Protein Albumin Globulin Albumin/Globulin Ratio Lipase Assessment & Plan Plan: Assessment/Plan Narrative: Reviewed the films and the reports. Clinically patient appears to have improved overnight. She is not particularly distended. She was having flatus and bowel movements after laxative. There is however dilated loops of small bowel and stomach is dilated. Not sure how that fits into her history. In any event, we will perform a small bowel follow-through. I have asked they emanations analysis technician to use water-soluble contrast. The NG may be used to administer the contrast. Then it should be clamped. Nursing was made aware of this. Then the patient will get periodically films during the day to see how the contrast progresses.
--- NOTE | 2018-03-16 14:43 | PC.NURSE ---
Am shift Pt has had c/o migraine this AM. Medicated per Emar, ABD pain 03/31. Flatus +no BM this shift. Nausea after moving from [facility]. NG patent, LIS, not much collected into cannister. Dr Berg into see Pt. Small bowel follow through ordered. Contrast given through NG, stopcock valve on NG reviewed with Dr and with Radiology, to remain closed during study. Verified after contrast given. 1330 Pt had emesis after films, 125ml liquid. Medicated per emar. 1445 Pt is less nauseated after films, contrast is moving. IV metoprol given and Tele in place for monitoring. NSR.
[2018-03-16] MEDS: ENOXAPARIN 40 MG/0.4 ML SYRINGE SUBCUT (14:56)
--- NOTE | 2018-03-16 18:47 | PM.PN.1 ---
Subjective Date Patient Seen: 03/16/18 Time Patient Seen: 17:00 Interval history: Patient has completed her small-bowel follow-through as ordered. She has now returned to her room. Nasogastric tube remains clamped. She has not have any nausea or vomiting currently. Denies any significant abdominal pain. Did have a liquid bowel movement shortly after the completion of the small-bowel follow-through. No subjective fever or chills. Exam Vital Signs (past 8 hours): - 03/16/18 12:00 03/16/18 15:00 03/16/18 15:15 Temperature 97.7 F 97.7 F Pulse Rate 76 71 Respiratory Rate 16 16 Blood Pressure 146/78 H 143/88 H Pulse Oximetry 96 98 96 Oxygen Delivery Method Room Air Oxygen Flow Rate 0 Narrative Exam Narrative: Well-nourished well-developed female resting comfortably in bed in no acute distress. No fevers. No tachycardia Chest clear to auscultation Abdomen shows active bowel sounds. She is not particularly distended. She is minimally tender to palpation throughout the central abdomen but certainly with no guarding or rebound. Nasogastric tube is in place at approximately 55 cm at the right naris, but the tape has been dislodged. I resecured the tube at that level. Objective Labs Result Diagrams: 03/16/18 06:10 03/16/18 06:10 Labs: Laboratory Results - last 24 hr 03/15/18 03/15/18 03/15/18 23:30 23:30 23:30 WBC 12.8 H RBC 4.95 Hgb 14.4 Hct 42.8 MCV 86.5 MCH 29.1 MCHC 33.6 RDW 12.8 Plt Count 384 Neut % (Auto) 72.2 Lymph % (Auto) 20.1 L [place] % (Auto) 6.7 Eos % (Auto) 0.5 L Baso % (Auto) 0.5 Neut # (Auto) 9200 H Lymph # (Auto) 2600 [place] # (Auto) 900 Eos # (Auto) 100 Baso # (Auto) 100 Sodium 138 Potassium 4.1 Chloride 101 Carbon Dioxide 26 BUN 13 Creatinine 0.60 Estimated GFR > 60.0 BUN/Creatinine Ratio 21.7 Glucose 121 H Hemoglobin A1c Lactate 0.9 Calcium 10.0 Magnesium Total Bilirubin 0.6 AST 20 ALT 25 Alkaline Phosphatase 97 Total Protein 7.9 Albumin 4.7 Globulin 3.2 Albumin/Globulin Ratio 1.5 Lipase 80 03/16/18 03/16/18 03/16/18 06:10 06:10 06:10 WBC 9.5 RBC 4.52 Hgb 13.3 Hct 39.4 MCV 87.1 MCH 29.4 MCHC 33.7 RDW 12.7 Plt Count 327 Neut % (Auto) 58.7 Lymph % (Auto) 30.6 [place] % (Auto) 9.4 Eos % (Auto) 0.7 L Baso % (Auto) 0.6 Neut # (Auto) 5600 Lymph # (Auto) 2900 [place] # (Auto) 900 Eos # (Auto) 100 Baso # (Auto) 100 Sodium 140 Potassium 3.9 Chloride 102 Carbon Dioxide 28 BUN 11 Creatinine 0.60 Estimated GFR > 60.0 BUN/Creatinine Ratio 18.3 Glucose 113 H Hemoglobin A1c 5.6 Lactate Calcium 8.9 Magnesium 2.4 H Total Bilirubin AST ALT Alkaline Phosphatase Total Protein Albumin Globulin Albumin/Globulin Ratio Lipase Have personally reviewed her small-bowel follow-through series done today. At 1:00 hour the contrast traversed most of the small bowel. By 2-3 hours contrast was throughout the colon. Small bowel loops are mildly dilated. No other remarkable findings. Assessment & Plan Plan: Assessment/Plan Narrative: 62-year-old female with partial small bowel obstruction likely secondary to adhesions from previous surgery who is currently stable. In fact, her small-bowel follow-through shows no evidence of high-grade obstruction or other issues at the moment. I am hopeful that the obstruction will continue to spontaneously resolve without further intervention. Continue the nasogastric tube to low intermittent wall suction tonight. If the output is minimal then I will remove it tomorrow and allow her clear diet. Discussed all the above with her and her family at the bedside. She understands, however, that should her obstruction progress or examination deteriorate and she would potentially require surgical intervention. All questions were answered to her satisfaction, and she voiced understanding. Quality VTE Deep Vein Thrombosis/Pulmonary Embolism Present on Admission: No
--- NOTE | 2018-03-16 18:51 | P.PN_ITS ---
Subjective Date Patient Seen: 03/16/18 Time Patient Seen: 17:00 Interval history: Patient has completed her small-bowel follow-through as ordered. She has now returned to her room. Nasogastric tube remains clamped. She has not have any nausea or vomiting currently. Denies any significant abdominal pain. Did have a liquid bowel movement shortly after the completion of the small-bowel follow-through. No subjective fever or chills. Exam Vital Signs (past 8 hours): - 03/16/18 12:00 03/16/18 15:00 03/16/18 15:15 Temperature 97.7 F 97.7 F Pulse Rate 76 71 Respiratory Rate 16 16 Blood Pressure 146/78 H 143/88 H Pulse Oximetry 96 98 96 Oxygen Delivery Method Room Air Oxygen Flow Rate 0 Narrative Exam Narrative: Well-nourished well-developed female resting comfortably in bed in no acute distress. No fevers. No tachycardia Chest clear to auscultation Abdomen shows active bowel sounds. She is not particularly distended. She is minimally tender to palpation throughout the central abdomen but certainly with no guarding or rebound. Nasogastric tube is in place at approximately 55 cm at the right naris, but the tape has been dislodged. I resecured the tube at that level. Objective Labs Result Diagrams: 03/16/18 06:10 03/16/18 06:10 Labs: Laboratory Results - last 24 hr 03/15/18 03/15/18 03/15/18 23:30 23:30 23:30 WBC 12.8 H RBC 4.95 Hgb 14.4 Hct 42.8 MCV 86.5 MCH 29.1 MCHC 33.6 RDW 12.8 Plt Count 384 Neut % (Auto) 72.2 Lymph % (Auto) 20.1 L [place] % (Auto) 6.7 Eos % (Auto) 0.5 L Baso % (Auto) 0.5 Neut # (Auto) 9200 H Lymph # (Auto) 2600 [place] # (Auto) 900 Eos # (Auto) 100 Baso # (Auto) 100 Sodium 138 Potassium 4.1 Chloride 101 Carbon Dioxide 26 BUN 13 Creatinine 0.60 Estimated GFR > 60.0 BUN/Creatinine Ratio 21.7 Glucose 121 H Hemoglobin A1c Lactate 0.9 Calcium 10.0 Magnesium Total Bilirubin 0.6 AST 20 ALT 25 Alkaline Phosphatase 97 Total Protein 7.9 Albumin 4.7 Globulin 3.2 Albumin/Globulin Ratio 1.5 Lipase 80 03/16/18 03/16/18 03/16/18 06:10 06:10 06:10 WBC 9.5 RBC 4.52 Hgb 13.3 Hct 39.4 MCV 87.1 MCH 29.4 MCHC 33.7 RDW 12.7 Plt Count 327 Neut % (Auto) 58.7 Lymph % (Auto) 30.6 [place] % (Auto) 9.4 Eos % (Auto) 0.7 L Baso % (Auto) 0.6 Neut # (Auto) 5600 Lymph # (Auto) 2900 [place] # (Auto) 900 Eos # (Auto) 100 Baso # (Auto) 100 Sodium 140 Potassium 3.9 Chloride 102 Carbon Dioxide 28 BUN 11 Creatinine 0.60 Estimated GFR > 60.0 BUN/Creatinine Ratio 18.3 Glucose 113 H Hemoglobin A1c 5.6 Lactate Calcium 8.9 Magnesium 2.4 H Total Bilirubin AST ALT Alkaline Phosphatase Total Protein Albumin Globulin Albumin/Globulin Ratio Lipase Have personally reviewed her small-bowel follow-through series done today. At 1 :00 hour the contrast traversed most of the small bowel. By 2-3 hours contrast was throughout the colon. Small bowel loops are mildly dilated. No other remarkable findings. Assessment & Plan Plan: Assessment/Plan Narrative: 62-year-old female with partial small bowel obstruction likely secondary to adhesions from previous surgery who is currently stable. In fact, her small- bowel follow-through shows no evidence of high-grade obstruction or other issues at the moment. I am hopeful that the obstruction will continue to spontaneously resolve without further intervention. Continue the nasogastric tube to low intermittent wall suction tonight. If the output is minimal then I will remove it tomorrow and allow her clear diet. Discussed all the above with her and her family at the bedside. She understands, however, that should her obstruction progress or examination deteriorate and she would potentially require surgical intervention. All questions were answered to her satisfaction , and she voiced understanding. Quality VTE Deep Vein Thrombosis/Pulmonary Embolism Present on Admission: No
--- NOTE | 2018-03-16 22:59 | PC.NURSE ---
NGT came out just now at 2300, patient states she sneezed several times really hard and it came out by itself. This RN replaced successfully without difficulty, will order xray per protocol. Call light in reach.
--- NOTE | 2018-03-16 23:00 | DI.RAD.S_ITS ---
PROCEDURE: XR ABDOMEN 1V INDICATIONS: NGT placement confirmation TECHNIQUE: One view of the abdomen acquired. COMPARISON: [facility], [place], XR CHEST 1V, 03/16/2018, 23:35. FINDINGS: Surgical changes and devices: There is a nasogastric tube with the tip in the stomach. Bowel: Bowel gas pattern is normal. The oral contrast is noted in colon and distal small bowel. Soft tissues: No suspicious abdominal calcifications. Visualized solid organ contours appear normal in size. Bones: No suspicious bony lesions. IMPRESSION: Nasogastric tube tip is in the stomach. Dictated by: Danna Deleon M.D. on 03/17/2018 at 7:56 Approved by: Danna Deleon M.D. on 03/17/2018 at 7:57
--- NOTE | 2018-03-16 23:30 | DI.RAD.S_ITS ---
PROCEDURE: XR CHEST 1V INDICATIONS: NG placement TECHNIQUE: One view of the chest was acquired. COMPARISON: [facility], CR, XR CHEST 1V, 03/16/2018, 2:52. FINDINGS: Surgical changes and devices: There is a nasogastric tube with the tip in the area of stomach. Lungs and pleura: No pleural effusions or pneumothorax. Lungs are clear. Mediastinum: Mediastinal contours appear normal. Heart size is normal. Bones and chest wall: No suspicious bony lesions. Overlying soft tissues appear unremarkable. IMPRESSION: The tip of the nasogastric tube is in the area of stomach. Dictated by: Danna Deleon M.D. on 03/17/2018 at 7:57 Approved by: Danna Deleon M.D. on 03/17/2018 at 7:59
[2018-03-17] VITALS (9 sets, daily range): BP systolic 143–150; BP diastolic 59–90; PULSE 51–94; RESP 16–20; TEMP 36.2–36.7; O2SAT 92–100
--- NOTE | 2018-03-17 | DI.RAD.S_ITS ---
PROCEDURE: XR ACUTE ABDOMEN SERIES INDICATIONS: small bowel obstruction TECHNIQUE: One view chest and two views of the abdomen were acquired. COMPARISON: [facility], RF, [place] SMALL BOWEL FOLLOW THROUGH, 03/16/2018, 12:36. [facility], CR, XR ABDOMEN 1V, 03/16/2018, 23:10. [facility], CR, XR CHEST 1V, 03/16/2018, 23:35. [facility], CT, CT ABDOMEN PELVIS W CON, 03/15/2018, 23:54. FINDINGS: Surgical changes and devices: There is a nasogastric tube in the stomach. Chest: Lungs are clear. Heart size is normal. No pleural effusions. No pneumoperitoneum. Abdomen: Oral contrast is present throughout colon. Small bowel loops are mildly distended and multiple air-fluid levels are present. No suspicious calcifications. Visualized solid organ contours appear normal. Bones: No suspicious bony lesions. IMPRESSION: Partial small bowel obstruction. Dictated by: Danna Deleon M.D. on 03/17/2018 at 14:49 Approved by: Danna Deleon M.D. on 03/17/2018 at 14:53
--- NOTE | 2018-03-17 00:18 | PC.NURSE ---
Addendum entered by Albina Rodriguez R.N. 03/17/18 06:39: Complains of 8/10 headache; requested/medicated with Imitrex. Sitting up on edge of bed. No output from NG this shift. Did have stool/urine mix of 450cc earlier this shift. Denies nausea. Original Note: Patient is alert and oriented. Breath sounds diminished but CTA with RA sat of 95%. HRR. BP elevated at 141/80 which is improved from last night; receiving Metoprolol q6h. Telemetry reading was SR w/BBB. Denies nausea. NG pulled back 2 inches per instructions after Genna CAPONE verified placement and now connected to LIS. BT present and abdomen is soft; reported to have had loose stools on previous shift. Denies dysuria, frequency, urgency or incontinence. Turns self in bed. Assisted out of bed due to multiple tubes and risk of dislodgement. Fall risk score is moderate; bed alarm is activated. Denies pain. Wearing bilateral calf SCD's.
--- NOTE | 2018-03-17 00:28 | PM.EVENT ---
Date Patient Seen: 03/16/18 Time Patient Seen: 23:55 Jyothi Palma is a 62-year-old female admitted to the hospital for small bowel obstruction. She had an NG-tube placed for gastric decompression. She had undergone small bowel follow-through radiological exam today however the results are not back for review and the patient has subsequently ?sneezed out? her NG tube. The tube was replaced due to lack of radiological interpretation of the follow-through findings. The tube position is confirmed by x-ray with an adjustment of the tube position withdrawing the 2 2 in. The patient tolerated the prom says without complication. We will follow the results of the small bowel follow-through exam in concert with Dr. Berg to do fine further plan of care.
[2018-03-17] MEDS: METOPROLOL TARTRATE 5 MG/5 ML INJ 2.5 MG IV ×2 (02:23→08:38)
[2018-03-17] MEDS: SODIUM CHLORIDE 0.9% 1,000 ML 125 ML IV ×3 (04:11→20:23)
[2018-03-17 05:49] LABS: Add Manual Diff / Slide Review NO; Basophils Absolute Auto 100 /uL (0-100); Basophils Percent Auto 0.8 % (0-2); Eosinophils Absolute Auto 100 /uL (0-450); Eosinophils Percent Auto 1.4 % (2-4); Hematocrit 37.3 % (36-46); Hemoglobin 12.5 g/dL (12.0-16.0); Lymphocytes Absolute Auto 2900 /uL (1100-4500); Lymphocytes Percent Auto 33.9 % (25-40); Mean Corpuscular HGB Conc 33.5 % (30-36); Mean Corpuscular Hemoglobin 29.4 PG (26-34); Mean Corpuscular Volume 87.9 fL (80-100); Monocytes Absolute Auto 700 /uL (0-900); Monocytes Percent Auto 8.2 % (3-14); Neutrophils Absolute Auto 4700 /uL (1500-7000); Neutrophils Percent Auto 55.7 % (50-75); Platelet Count 311 X10^3/uL (150-400); Red Blood Cell Count 4.24 X10^6/uL (4.0-5.2); Red Cell Distribution Width 12.7 % (11.6-14.8); White Blood Cell Count 8.4 X10^3/uL (4.5-11.0)
[2018-03-17 06:20] LABS: BUN Creatinine Ratio 13.3 (6-22); Blood Urea Nitrogen 8 mg/dL (7-17); Calcium 8.5 mg/dL (8.4-10.2); Carbon Dioxide 26 mmol/L (22-32); Chloride 106 mmol/L (98-107); Estimated Glomerular Filt Rate > 60.0 mL/min (>60); Glucose 84 mg/dL (80-110); HEMOLYSIS < 15 (0-50); Potassium 3.6 mmol/L (3.4-5.1); Sodium 141 mmol/L (137-145)
[2018-03-17] MEDS: SUMAtriptan 6 MG/0.5 ML VIAL SUBCUT ×2 (06:33→13:44)
[2018-03-17] MEDS: ENOXAPARIN 40 MG/0.4 ML SYRINGE SUBCUT (08:37)
--- NOTE | 2018-03-17 10:08 | P.PN_ITS ---
Subjective Date Patient Seen: 03/17/18 Time Patient Seen: 10:08 Interval history: She is seen today to follow up her small bowel obstruction/ ileus, hypertension and hyperglycemia. Her A1c is 5.6 and her blood sugar today is 84. The small-bowel follow-through showed probable ileus. Surgery is also following her and has progressed her to a liquid diet with plans to potentially discharge tomorrow. Overnight the NG tube inadvertently was removed and then was replaced. Later on today the NG tube was again removed and she has been tolerating oral intake quite well. A repeat x-ray today was reassuring. She has been changed back to her propanolol and the IV metoprolol was stopped. Exam Vital Signs (past 8 hours): - 03/17/18 02:24 03/17/18 05:25 03/17/18 07:00 Temperature 97.5 F L Pulse Rate 80 68 Respiratory Rate 16 20 Blood Pressure 144/59 H 147/79 H Pulse Oximetry 95 92 03/17/18 08:49 Temperature 97.2 F L Pulse Rate 74 Respiratory Rate 18 Blood Pressure 150/88 H Pulse Oximetry 92 Oxygen Delivery Method Room Air Oxygen Flow Rate 0 Narrative Exam Narrative: She is alert and oriented and in no apparent distress. Heart is regular rate and rhythm without murmur. Lungs are clear to auscultation bilaterally. Abdomen is soft, bowel sounds positive, nontender, no organomegaly. Extremities have no ankle edema. Objective Labs Result Diagrams: 03/17/18 05:36 03/17/18 05:36 Labs: Laboratory Results - last 24 hr 03/17/18 03/17/18 05:36 05:36 WBC 8.4 RBC 4.24 Hgb 12.5 Hct 37.3 MCV 87.9 MCH 29.4 MCHC 33.5 RDW 12.7 Plt Count 311 Neut % (Auto) 55.7 Lymph % (Auto) 33.9 [place] % (Auto) 8.2 Eos % (Auto) 1.4 L Baso % (Auto) 0.8 Neut # (Auto) 4700 Lymph # (Auto) 2900 [place] # (Auto) 700 Eos # (Auto) 100 Baso # (Auto) 100 Sodium 141 Potassium 3.6 Chloride 106 Carbon Dioxide 26 BUN 8 Creatinine 0.60 Estimated GFR > 60.0 BUN/Creatinine Ratio 13.3 Glucose 84 Calcium 8.5 Assessment & Plan Plan: Assessment/Plan Narrative: (1) Partial bowel obstruction: Ileus Problem details: This appears to have been at the anastomosis site and has now cleared. Dr. Jacobson from general surgery is following and has progressed her to a liquid diet. Qualifiers: Intestinal obstruction type: Current visit: Yes Status: Acute (2) hyperglycemia: Problem details: The A1c is normal at 5.6. She does not have type 2 diabetes. Current visit: Yes Status: Acute (3) Essential hypertension: Problem details: Transitioned today back to oral propanolol.. Current visit: Yes Status: Acute Quality VTE Deep Vein Thrombosis/Pulmonary Embolism Present on Admission: No
--- NOTE | 2018-03-17 12:02 | PC.NURSE ---
PT A/O X3, DOWN TO RADIOLOGY FOR UPPER AND LOWER X-RAY, NG TUBE DC'D BY DR. JUAN. UP TO SHOWER WITHOUT INCIDENT. PT DENIES PAIN AND NAUSEA. PT. UP TO CHAIR. TOLERATING CLEAR LIQUID DIET.
--- NOTE | 2018-03-17 12:06 | P.PN_ITS ---
Subjective Date Patient Seen: 03/17/18 Time Patient Seen: 12:03 Interval history: Patient denies any abdominal pain or significant distention. She is passing flatus and had multiple liquid bowel movements after her small- bowel follow-through yesterday. She is hungry this morning and wishes to have something to drink. No nausea or vomiting. No subjective fever or chills. Denies chest pain or shortness of breath. Exam Vital Signs (past 8 hours): - 03/17/18 05:25 03/17/18 07:00 03/17/18 08:49 Temperature 97.5 F L 97.2 F L Pulse Rate 68 74 Respiratory Rate 20 18 Blood Pressure 147/79 H 150/88 H Pulse Oximetry 95 92 92 Oxygen Delivery Method Room Air Oxygen Flow Rate 0 Narrative Exam Narrative: Well-nourished well-developed female sitting comfortably in bed watching television in no acute distress. Alert oriented x3. Chest clear to auscultation bilaterally with regular rate rhythm Nasogastric tube is in place to low intermittent wall suction. Output has only been approximately 50 cc since yesterday. Fluid in the suction canister is clear only. No bile. Abdomen shows active bowel sounds. She is nondistended and nontender. No guarding or rebound. Extremities show no clubbing or cyanosis Objective Labs Result Diagrams: 03/17/18 05:36 03/17/18 05:36 Labs: Laboratory Results - last 24 hr 03/17/18 03/17/18 05:36 05:36 WBC 8.4 RBC 4.24 Hgb 12.5 Hct 37.3 MCV 87.9 MCH 29.4 MCHC 33.5 RDW 12.7 Plt Count 311 Neut % (Auto) 55.7 Lymph % (Auto) 33.9 [place] % (Auto) 8.2 Eos % (Auto) 1.4 L Baso % (Auto) 0.8 Neut # (Auto) 4700 Lymph # (Auto) 2900 [place] # (Auto) 700 Eos # (Auto) 100 Baso # (Auto) 100 Sodium 141 Potassium 3.6 Chloride 106 Carbon Dioxide 26 BUN 8 Creatinine 0.60 Estimated GFR > 60.0 BUN/Creatinine Ratio 13.3 Glucose 84 Calcium 8.5 I have personally reviewed her follow-up abdominal x-rays done this morning. She has contrast throughout the entire colon down to the rectum. There is no residual contrast in the small bowel. No free air. There remain a few mildly dilated small bowel loops in the central abdomen however. No significant air- fluid levels. Overall the bowel gas pattern is improved compared to admission. Assessment & Plan Plan: Assessment/Plan Narrative: 62-year-old female with partial small bowel obstruction likely secondary to adhesions now spontaneously slowly resolving. Her nasogastric tube is draining very minimal non bilious output. I therefore have removed at this morning. We will allow her clear liquid diet only at this point. She may shower and be out of bed as much as possible. I encouraged her to ambulate in the hallways. Continue IV fluids for now as her oral intake will likely not be quite enough to maintain hydration at this point. If she continues to have bowel function and show sign of clinical improvement then I would plan to advance her diet tomorrow. Once she is tolerating a diet and having consistent bowel function she would then be ready for discharge. I discussed all the above with her in detail. All questions were answered to her satisfaction, and she voiced understanding. Orders were written. Quality VTE Deep Vein Thrombosis/Pulmonary Embolism Present on Admission: No
[2018-03-17] MEDS: PROPRANOLOL 10 MG TABLET 20 MG PO ×2 (13:07→20:18)
--- NOTE | 2018-03-17 14:13 | PC.NURSE ---
Agree with above charting with student RN Clarita. Supervised by this RN.
--- NOTE | 2018-03-17 14:30 | PC.NURSE ---
Pt. dressed, discharge summary reviewed. Reviewed signs and symptoms of stroke in relationship to high cholestoral and high blood pressure. S/s of stroke reviewed. Rx faxed to [facility] in [facility]. Pt. left via wheel chair with and all personal belongings to [facility]. IV removed.
[2018-03-17] MEDS: ONDANSETRON 4 MG/2 ML INJ IV (19:35)
[2018-03-17] MEDS: NORTRIPTYLINE HCL 25 MG CAPSULE 75 MG PO (20:18)
[2018-03-18] VITALS (9 sets, daily range): BP systolic 133–146; BP diastolic 62–84; PULSE 62–85; RESP 13–18; TEMP 36.3–36.6; O2SAT 94–99
[2018-03-18] MEDS: MORPHINE 2 MG/ML INJ IV (00:30)
[2018-03-18] MEDS: SODIUM CHLORIDE 0.9% 1,000 ML 125 ML IV (04:27)
[2018-03-18 05:38] LABS: Add Manual Diff / Slide Review NO; Basophils Absolute Auto 100 /uL (0-100); Basophils Percent Auto 0.9 % (0-2); Eosinophils Absolute Auto 200 /uL (0-450); Eosinophils Percent Auto 2.6 % (2-4); Hematocrit 35.1 % (36-46); Lymphocytes Absolute Auto 3000 /uL (1100-4500); Lymphocytes Percent Auto 44.6 % (25-40); Mean Corpuscular HGB Conc 34.1 % (30-36); Mean Corpuscular Hemoglobin 29.6 PG (26-34); Mean Corpuscular Volume 86.8 fL (80-100); Monocytes Absolute Auto 700 /uL (0-900); Monocytes Percent Auto 10.5 % (3-14); Neutrophils Absolute Auto 2700 /uL (1500-7000); Neutrophils Percent Auto 41.4 % (50-75); Platelet Count 281 X10^3/uL (150-400); Red Blood Cell Count 4.05 X10^6/uL (4.0-5.2); Red Cell Distribution Width 12.4 % (11.6-14.8); White Blood Cell Count 6.6 X10^3/uL (4.5-11.0)
[2018-03-18 05:51] LABS: Blood Urea Nitrogen 4 mg/dL (7-17); Calcium 8.3 mg/dL (8.4-10.2); Carbon Dioxide 27 mmol/L (22-32); Chloride 104 mmol/L (98-107); Estimated Glomerular Filt Rate > 60.0 mL/min (>60); Glucose 83 mg/dL (80-110); HEMOLYSIS < 15 (0-50); Sodium 139 mmol/L (137-145)
[2018-03-18] MEDS: POTASSIUM CHLORIDE 60 MEQ in SODIUM CHLORIDE 0.9% 500 ML 88.333 ML IV (06:41)
--- NOTE | 2018-03-18 07:02 | P.DS_ITS ---
History of Present Illness Date Patient Seen: 03/16/18 Chief complaint: ABD PAIN Narrative: Written by Troy Ochoa: Lucas Palma is a 62-year-old female patient with a history of prior small bowel obstruction requiring surgical intervention some 20 years ago, hypertension and migraines who presents today the ER with complaints of abdominal pain nausea and vomiting. The patient reports that she had been feeling listless for approximately 2 weeks but approximately 4 days ago the patient developed ?bad gas? and bloating for which she took Gas-X. At that time the patient relies she had not had a bowel movement for 3 days and took magnesium citrate to which she reports a good response having soft yellow stool. Her symptoms became progressive and worsened today developing nausea and vomiting. Her last bowel movement was today approximately 11:30 she describes as liquid. Patient also endorses history of migraine headaches which will occur approximately 2-3 times per month for which she takes sumatriptan. She also describes history of hypertension for which she takes propranolol and anxiety for which she takes nortriptyline. She had [place] history of diabetes that is diet controlled. The patient denies current symptoms of fevers or chills, headaches or dizziness. She has no shortness of breath or chest pain. In the ER the patient is received morphine and Zofran with decrease in symptoms. A CT of the abdomen was obtained revealing a small bowel obstruction with a transition point distal the patient's small-bowel anastomosis in the pelvis described as left of midline, small amount of free fluid with no free air. Lab work obtained in the ER showed an elevated white count at 12.8, and H& H of 14.4 and 42.8 respectively. On chemistry she has a glucose of 121 with remainder of the panel within normal limits. Her LFTs within normal as well as lipase normal at 80. Lactate is 0.9. was contacted by the ER for consultation and will evaluate the patient in the morning. Discharge Providers Date of admission: 03/16/18 02:04 Primary care physician: Damián Benjamin MD Consults: 03/16/18 03:36 Consult to Physician Routine Comment: Consulting Provider: Juaquin Berg Reason for consultation: Small Bowel Obstruction Has provider been notified: Yes 03/16/18 03:37 Consult to Discharge Planning Routine Comment: Discharge provider: Seema Rubio DO Discharge Date: 03/19/18 Summary Discharge Diagnosis: 1. Acute partial SBO, likely secondary to adhesions, present on admission. Resolved. 2. Acute hyperglycemia, present on admission. Resolved. 3. Hypertension, chronic, present on admission. Stable. 4. Acute hypokalemia, not present on admission. Resolved. 5. Anxiety, chronic, present on admission. Stable. Hospital Course: Lucas Palma is a 62-year-old female with past medical history significant for hypertension, anxiety, migraine headaches, and previous SBO who presented with nausea, vomiting, abdominal pain and was admitted for partial SBO likely secondary to adhesions. 1. Acute partial SBO, likely secondary to adhesions, present on admission. Resolved. -CT abdomen and pelvis with contrast small bowel obstruction with transition point identified just distal to the anastomotic suture line from prior bowel resection noted in the lower midline abdomen/pelvis, slightly left of midline. -Small-bowel follow-through was performed and demonstrated partial SBO which is now spontaneously resolving. NG tube pulled. Diet has been advanced slowly and she is tolerating a full liquid/soft diet well. She has had several loose BMs since small bowel follow-through and another BM last night after lactulose. -General surgery followed throughout hospitalization and we appreciate their time and recommendations. 2. Acute hyperglycemia, present on admission. Resolved. -Patient is not diabetic hemoglobin A1c normal at 5.6%. 3. Hypertension, chronic, present on admission. Stable. -Restarted patients home propranolol. 4. Acute hypokalemia, not present on admission. Resolved. -Repleted with 60 mEq potassium chloride IV x1 (only received half a bag as IV infiltrated). -Monitored potassium daily. 5. Anxiety, chronic, present on admission. Stable. -Restarted patient's home propanolol and nortriptyline. 6. Migraine headache, chronic, not present on admission. Ongoing and controlled. -Patient received Imitrex 100 mg subcutaneously as needed for migraine headaches. Status at Discharge Functional status at discharge: independent ambulation Overall status at discharge: patient is back to baseline Exam Vital Signs (past 8 hours): - 03/17/18 23:10 03/18/18 00:05 03/18/18 04:05 Temperature 97.5 F L 97.4 F L Pulse Rate 75 84 Respiratory Rate 18 18 Blood Pressure 145/89 H 146/81 H Pulse Oximetry 95 95 97 Oxygen Delivery Method Room Air Oxygen Flow Rate 0 Narrative Exam Narrative: General: Middle-aged female lying in bed and in no acute distress, complains of mild headache with photophobia, well-developed, well-nourished, appropriately interactive. HEENT: Normocephalic, atraumatic. External ears without defect. Pupils equal, round, and reactive to light and accommodation. Anicteric sclerae, moist conjunctivae, and no lid lag. Mild photophobia present. Neck: Supple with full range of motion. No lymphadenopathy or thyromegaly. Cardiovascular: Regular rate and rhythm without murmurs, rubs, or gallops appreciated Pulmonary: Clear to auscultation bilaterally without crackles, wheezes, or rhonchi. Normal respiratory effort with no use of accessory muscles. Abdomen: Soft, bowel sounds present, nontender, nondistended. No hepatosplenomegaly or masses appreciated. Extremities: No clubbing, cyanosis, or edema. Skin: Normal temperature, turgor, and texture; no rash, ulcers, or subcutaneous nodules appreciated. Neurological: Cranial nerves grossly intact. Psychiatric: Anxious, normal affect. Alert and oriented to person, place, and time. Objective Labs Result Diagrams: 03/19/18 06:30 03/19/18 06:30 Labs: Laboratory Results - last 24 hr 03/18/18 03/18/18 05:21 05:21 WBC 6.6 RBC 4.05 Hgb 12.0 Hct 35.1 L MCV 86.8 MCH 29.6 MCHC 34.1 RDW 12.4 Plt Count 281 Neut % (Auto) 41.4 L Lymph % (Auto) 44.6 H [place] % (Auto) 10.5 Eos % (Auto) 2.6 Baso % (Auto) 0.9 Neut # (Auto) 2700 Lymph # (Auto) 3000 [place] # (Auto) 700 Eos # (Auto) 200 Baso # (Auto) 100 Sodium 139 Potassium 3.0 L Chloride 104 Carbon Dioxide 27 BUN 4 L Creatinine 0.50 L Estimated GFR > 60.0 BUN/Creatinine Ratio 8.0 Glucose 83 Calcium 8.3 L Discharge Plan Discharge Plan Patient Disposition: Home Discharge comment: Your being discharged home. Please follow-up with your primary care physician, Dr. Benjamin, in the next 1-2 weeks. Please continue to slowly advance your diet with liquids and soft foods. Continue to be as active as much as possible and stay well hydrated. Avoid Gas-X and laxatives. Discharge Med Rec/Prescriptions Prescriptions: Continue nortriptyline 75 MG capsule 75 mg PO HS Qty: 0 RF: 0 sumatriptan succinate [Imitrex] 100 MG tablet 100 mg PO PRN PRN (Reason: Headache) Qty: 0 RF: 0 propranolol 20 MG tablet 20 mg PO DAILY Qty: 0 RF: 0 Follow up/Referrals: Damián Benjamin MD [Primary Care Provider] - 1 Week (Hospital follow-up for partial small-bowel obstruction your appointment is: SundayMar 26 check in @ 1:20 for A 1:[address] Benjamin [phone]) Provider Discharge Instructions Diet: Diet as Tolerated Diet comment: Liquids and soft foods for the next several days Activity: Activity as tolerated Skin/Wound/Dressing Care Report to your healthcare provider any signs of infection, such as:: increased pain Visit Report/Discharge Packet Instructions: DI for Small Bowel Obstruction Visit Report Forms: Stroke Signs & Symptoms Discharge Data Primary Care Provider: Damián Benjamin Attending Provider: Troy Ochoa Admit Date/Time: 03/16/18 02:04 Quality VTE Deep Vein Thrombosis/Pulmonary Embolism Present on Admission: No
[2018-03-18 07:31] LABS: Magnesium 1.9 mg/dL (1.6-2.3)
[2018-03-18] MEDS: SUMAtriptan 6 MG/0.5 ML VIAL SUBCUT (07:52)
[2018-03-18] MEDS: PROPRANOLOL 10 MG TABLET 20 MG PO (07:53)
[2018-03-18] MEDS: ENOXAPARIN 40 MG/0.4 ML SYRINGE SUBCUT (07:53)
--- NOTE | 2018-03-18 09:26 | PC.NURSE ---
Addendum entered by Delia Luong R.N. 03/18/18 14:11: pt is ambulating in hallways independently. Original Note: Addendum entered by Delia Luong R.N. 03/18/18 12:52: is aware that pt only received half of k rider. Original Note: Addendum entered by Delia Luong R.N. 03/18/18 12:49: Pt IV infiltrated, IV stopped and removed, Dr robbins notifed and order to stop potassium krider but still place new IV. Original Note: Day shift pt is a&o able to make needs know. Pt c/o migrain this morning medicated per emar. Pt tolerated clear liquid diet. Denies any nausea or GI upset. IV infiltrated stopped and removed new IV started to right FA. Krider infusing at 70cc/hr, c/o burning at higher rate is aware. Call light within reach is ambulating in hallway
--- NOTE | 2018-03-18 09:44 | PM.PN.1 ---
Subjective Date Patient Seen: 03/18/18 Time Patient Seen: 09:44 Interval history: Patient had nausea last night but not this morning. She was treated successfully with Zofran. Tolerating clear liquid breakfast this morning. She has been ambulating in the hallways without any issues. Denies any abdominal pain whatsoever. Only small amount of flatus since yesterday. No bowel movement. Denies dysuria or hematuria. No subjective fever or chills. Feels that her appetite is slowly improving. Exam Vital Signs (past 8 hours): - 03/18/18 04:05 03/18/18 07:00 03/18/18 07:15 Temperature 97.4 F L 97.4 F L Pulse Rate 84 67 Respiratory Rate 18 18 Blood Pressure 146/81 H 133/63 Pulse Oximetry 97 99 96 Oxygen Delivery Method Room Air Oxygen Flow Rate 0 Narrative Exam Narrative: Well-nourished well-developed female in no acute distress. Alert oriented x3. She is ambulating without difficulty. She is in good spirits. Sclera nonicteric Remains afebrile and hemodynamically stable with no tachycardia. Good urine output Chest clear to auscultation bilaterally with regular rate rhythm Abdomen is nondistended and soft. She has bowel sounds. She is nontender throughout the entire abdomen. No masses. Extremities show no clubbing or cyanosis. She does have some trace edema at the bilateral ankles. Objective Labs Result Diagrams: 03/18/18 05:21 03/18/18 05:21 Labs: Laboratory Results - last 24 hr 03/18/18 03/18/18 03/18/18 05:21 05:21 Unknown WBC 6.6 RBC 4.05 Hgb 12.0 Hct 35.1 L MCV 86.8 MCH 29.6 MCHC 34.1 RDW 12.4 Plt Count 281 Neut % (Auto) 41.4 L Lymph % (Auto) 44.6 H [place] % (Auto) 10.5 Eos % (Auto) 2.6 Baso % (Auto) 0.9 Neut # (Auto) 2700 Lymph # (Auto) 3000 [place] # (Auto) 700 Eos # (Auto) 200 Baso # (Auto) 100 Sodium 139 Potassium 3.0 L Chloride 104 Carbon Dioxide 27 BUN 4 L Creatinine 0.50 L Estimated GFR > 60.0 BUN/Creatinine Ratio 8.0 Glucose 83 Calcium 8.3 L Magnesium 1.9 No new radiographic studies review Assessment & Plan Plan: Assessment/Plan Narrative: 62-year-old female with resolving partial small-bowel obstruction likely secondary to adhesions. I will advance her to a full liquid diet today. Add bowel regimen consisting of Colace, Senokot, and milk of magnesia. Continue ambulation in the hallways as much as possible. If he does well throughout the day today then we could perhaps advance her to a regular diet tonight and if she tolerates breakfast tomorrow then discharged home at that time. I discussed all the above with her in detail. All questions were answered to her satisfaction, and she voiced understanding. Orders were written. Quality VTE Deep Vein Thrombosis/Pulmonary Embolism Present on Admission: No
--- NOTE | 2018-03-18 09:57 | P.PN_ITS ---
Subjective Date Patient Seen: 03/18/18 Interval history: Lucas Palma is a 62-year-old female with past medical history significant for hypertension, anxiety, migraine headaches, and previous SBO who presented with nausea, vomiting, abdominal pain and was admitted for partial SBO likely secondary to adhesions. Patient is resting in bed comfortably this morning. She endorses mild headache with photophobia. She denies chest pain, shortness of breath, abdominal pain, nausea, vomiting, fever, chills, dysuria or constipation. She is tolerating a clear liquid diet and her appetite is slowly improving. Plan to advance to full liquid diet today. She has had several loose bowel movements since small bowel follow-through. No bowel movement today. She is ambulating in the hallways without difficulty. Exam Vital Signs (past 8 hours): - 03/18/18 04:05 03/18/18 07:00 03/18/18 07:15 Temperature 97.4 F L 97.4 F L Pulse Rate 84 67 Respiratory Rate 18 18 Blood Pressure 146/81 H 133/63 Pulse Oximetry 97 99 96 Oxygen Delivery Method Room Air Oxygen Flow Rate 0 Narrative Exam Narrative: General: Middle-aged female lying in bed and in no acute distress, complains of mild headache with photophobia, well-developed, well-nourished, appropriately interactive. HEENT: Normocephalic, atraumatic. External ears without defect. Pupils equal, round, and reactive to light and accommodation. Anicteric sclerae, moist conjunctivae, and no lid lag. Mild photophobia present. Neck: Supple with full range of motion. No lymphadenopathy or thyromegaly. Cardiovascular: Regular rate and rhythm without murmurs, rubs, or gallops appreciated Pulmonary: Clear to auscultation bilaterally without crackles, wheezes, or rhonchi. Normal respiratory effort with no use of accessory muscles. Abdomen: Soft, bowel sounds present, non-tender, non-distended. No hepatosplenomegaly or masses appreciated. Extremities: No clubbing, cyanosis, or edema. Skin: Normal temperature, turgor, and texture; no rash, ulcers, or subcutaneous nodules appreciated. Neurological: Cranial nerves grossly intact. Psychiatric: Anxious, normal affect. Alert and oriented to person, place, and time. Objective Labs Result Diagrams: 03/18/18 05:21 03/18/18 05:21 Labs: Laboratory Results - last 24 hr 03/18/18 03/18/18 03/18/18 05:21 05:21 Unknown WBC 6.6 RBC 4.05 Hgb 12.0 Hct 35.1 L MCV 86.8 MCH 29.6 MCHC 34.1 RDW 12.4 Plt Count 281 Neut % (Auto) 41.4 L Lymph % (Auto) 44.6 H [place] % (Auto) 10.5 Eos % (Auto) 2.6 Baso % (Auto) 0.9 Neut # (Auto) 2700 Lymph # (Auto) 3000 [place] # (Auto) 700 Eos # (Auto) 200 Baso # (Auto) 100 Sodium 139 Potassium 3.0 L Chloride 104 Carbon Dioxide 27 BUN 4 L Creatinine 0.50 L Estimated GFR > 60.0 BUN/Creatinine Ratio 8.0 Glucose 83 Calcium 8.3 L Magnesium 1.9 Assessment & Plan Plan: Assessment/Plan Narrative: Lucas Palma is a 62-year-old female with past medical history significant for hypertension, anxiety, migraine headaches, and previous SBO who presented with nausea, vomiting, abdominal pain and was admitted for partial SBO likely secondary to adhesions. 1. Acute partial SBO, likely secondary to adhesions, present on admission. Resolved. -CT abdomen and pelvis with contrast small bowel obstruction with transition point identified just distal to the anastomotic suture line from prior bowel resection noted in the lower midline abdomen/pelvis, slightly left of midline. -Small-bowel follow-through was performed and demonstrated partial SBO which is now spontaneously resolving. NG tube pulled. She is tolerating a clear liquid diet and plan to advance to full liquid diet today per surgery. She has had several loose BMs after small-bowel follow-through. -General surgery consulted and we appreciate their time and recommendations. 2. Acute hyperglycemia, present on admission. Resolved. -Patient is not diabetic hemoglobin A1c normal at 5.6%. -Continue to monitor glucose daily. 3. Hypertension, chronic, present on admission. Stable. -Continue patients home propranolol. 4. Acute hypokalemia, not present on admission. Resolved. -Repleted with 60 mEq potassium chloride IV x1. -Monitor potassium daily. 5. Anxiety, chronic, present on admission. Stable. -Continue home propanolol and nortriptyline. 6. Migraine headache, chronic, not present on admission. Ongoing and controlled. -Continue home Imitrex 100 mg every 2 hr as needed for migraine headaches. Quality VTE Deep Vein Thrombosis/Pulmonary Embolism Present on Admission: No
[2018-03-18] MEDS: DOCUSATE 100 MG CAPSULE PO ×2 (11:04→20:53)
[2018-03-18] MEDS: LACTULOSE 20 GM/30 ML SOLUTION PO (17:30)
[2018-03-18] MEDS: MAGNESIUM HYDROXIDE 30 ML UDC PO (20:53)
[2018-03-18] MEDS: NORTRIPTYLINE HCL 25 MG CAPSULE 75 MG PO (20:53)
[2018-03-18] MEDS: SUMAtriptan 25 MG TABLET 100 MG PO (20:57)
[2018-03-19 01:06] VITALS: O2SAT 98
[2018-03-19 04:57] VITALS: BP 133/68; PULSE 88; RESP 16; TEMP 36.6; O2SAT 95
[2018-03-19 07:10] LABS: Add Manual Diff / Slide Review NO; Basophils Absolute Auto 0 /uL (0-100); Basophils Percent Auto 0.6 % (0-2); Eosinophils Absolute Auto 200 /uL (0-450); Eosinophils Percent Auto 2.4 % (2-4); Hematocrit 35.7 % (36-46); Lymphocytes Absolute Auto 2300 /uL (1100-4500); Mean Corpuscular HGB Conc 33.5 % (30-36); Mean Corpuscular Hemoglobin 29.2 PG (26-34); Mean Corpuscular Volume 87.2 fL (80-100); Monocytes Absolute Auto 700 /uL (0-900); Neutrophils Absolute Auto 3500 /uL (1500-7000); Platelet Count 296 X10^3/uL (150-400); Red Cell Distribution Width 12.7 % (11.6-14.8); White Blood Cell Count 6.8 X10^3/uL (4.5-11.0)
[2018-03-19 07:30] LABS: Blood Urea Nitrogen 6 mg/dL (7-17); Carbon Dioxide 31 mmol/L (22-32); Chloride 104 mmol/L (98-107); Estimated Glomerular Filt Rate > 60.0 mL/min (>60); Glucose 96 mg/dL (80-110); HEMOLYSIS < 15 (0-50); Magnesium 2.3 mg/dL (1.6-2.3); Potassium 3.4 mmol/L (3.4-5.1); Sodium 140 mmol/L (137-145)
[2018-03-19 07:45] VITALS: BP 131/80; PULSE 88; RESP 16; TEMP 36.6; O2SAT 99
[2018-03-19] MEDS: DOCUSATE 100 MG CAPSULE PO (08:31)
[2018-03-19] MEDS: PROPRANOLOL 10 MG TABLET 20 MG PO (08:31)
--- NOTE | 2018-03-19 09:04 | CM.DPC ---
DCP Cont: Patient was advanced to full liquid diet yesterday. Had also been complaining of migraines yesterday as well. Will see how patient does today. Goal is for home when she can tolerate food, and has regular BM. P: DCP will continue to follow closely. Plan is for home when she is medically stable. Maryjo Cornelius RN/Gear Tester
[2018-03-19 09:23] VITALS: O2SAT 99
--- NOTE | 2018-03-19 09:33 | PC.NURSE ---
Pt alert, oriented denies abdominal pain and nausea. Tolerated breakfast, ambulating in [place], gait steady.
--- NOTE | 2018-03-19 11:38 | P.PN_ITS ---
Subjective Date Patient Seen: 03/19/18 Time Patient Seen: 11:35 Interval history: Patient denies any abdominal pain. No nausea or vomiting. She tolerated a regular dinner last night and a regular breakfast this morning. No subjective fever or chills. No chest pain or shortness of breath. No dysuria. She is passing flatus. She had a bowel movement yesterday after dinner. Exam Vital Signs (past 8 hours): - 03/19/18 04:57 03/19/18 07:45 03/19/18 09:23 Temperature 97.8 F 97.9 F Pulse Rate 88 88 Respiratory Rate 16 16 Blood Pressure 133/68 131/80 Pulse Oximetry 95 99 99 Oxygen Delivery Method Room Air Oxygen Flow Rate 0 Narrative Exam Narrative: Well-nourished well-developed female in no acute distress. Alert oriented x3. She is initially ambulating about the room at the time of my visit. Regular rate and rhythm She remains completely afebrile with normal vital signs Abdomen is soft, nondistended, nontender, no masses. Objective Labs Result Diagrams: 03/19/18 06:30 03/19/18 06:30 Labs: Laboratory Results - last 24 hr 03/19/18 03/19/18 06:30 06:30 WBC 6.8 RBC 4.10 Hgb 12.0 Hct 35.7 L MCV 87.2 MCH 29.2 MCHC 33.5 RDW 12.7 Plt Count 296 Neut % (Auto) 52.0 Lymph % (Auto) 34.0 [place] % (Auto) 11.0 Eos % (Auto) 2.4 Baso % (Auto) 0.6 Neut # (Auto) 3500 Lymph # (Auto) 2300 [place] # (Auto) 700 Eos # (Auto) 200 Baso # (Auto) 0 Sodium 140 Potassium 3.4 Chloride 104 Carbon Dioxide 31 BUN 6 L Creatinine 0.60 Estimated GFR > 60.0 BUN/Creatinine Ratio 10.0 Glucose 96 Calcium 9.0 Magnesium 2.3 Assessment & Plan Plan: Assessment/Plan Narrative: 62-year-old female with resolved partial small bowel obstruction. She is tolerating a diet and has had return of baseline bowel function at this point. She may therefore be discharged home from the hospital today. Continue diet as tolerated. Activity as tolerated as well. She may follow up with her primary care physician in [place] within the next 2-3 weeks. She may follow up in the surgery clinic as needed. However, I clearly explained to her that she should call or return to the emergency department if she has recurrent symptoms of nausea, vomiting, abdominal distention, progressive abdominal pain, or lack of bowel function. All questions were answered to her satisfaction, and she voiced understanding. Case discussed with the Internal Medicine Service. Quality VTE Deep Vein Thrombosis/Pulmonary Embolism Present on Admission: No
== END 2018-03-19 11:45 | disposition home or self-care (01) | DRG 247 ==
LOC: ED 03-16 01:59 → AC 03-16 08:34
PROVIDERS: Internal Medicine; Admitting Provider Nurse Practitioner Adult Health; Emergency Provider Emergency Medicine; Family Provider Family Medicine; PCP Family Medicine; Visit Provider Nurse Practitioner Adult Health
DX: K56.51 Intestinal adhesions [bands], with partial obstruction (principal); E87.6 Hypokalemia; R73.9 Hyperglycemia, unspecified; G43.909 Migraine, unspecified, not intractable, without status migrainosus; F41.9 Anxiety disorder, unspecified; I10 Essential (primary) hypertension
CPT/HCPCS: 36415; 36591; 71045; 74018; 74022; 74177; 74250; 80048; 80053; 82962; 83036; 83605; 83690; 83735; 85025; 93005; 93010; 96361; 96374; 96375; 96376; 99232; 99253; 99283; 99285; J1650; J2060; J2270; J2405; J3030; J3480; Q9967

== ENCOUNTER → 2018-09-18 11:10 | Outpatient (CLI) | payer MEDICARE, OTHER, SELFPAY ==
[2018-03-16 03:05] VITALS: BMI 27.7
--- NOTE | 2018-09-18 | DI.MG.S_ITS ---
BILATERAL DIGITAL SCREENING MAMMOGRAM 3D/2D WITH CAD: 09/18/2018 CLINICAL: Routine screening. Comparison is made to exams dated: 03/13/2017 mammogram and 01/11/2016 mammogram - [facility]. There are scattered fibroglandular elements in both breasts. Current study was also evaluated with a Computer Aided Detection (CAD) system. No significant masses, calcifications, or other findings are seen in either breast. There has been no significant interval change. IMPRESSION: NEGATIVE There is no mammographic evidence of malignancy. A 1 year screening mammogram is recommended. This exam was interpreted at Station ID: [id number]. NOTE: For mammograms, a report in lay terms will be sent to the patient. Approximately 15% of breast malignancies will not be visualized mammographically. In the management of a palpable breast mass, a negative mammogram must not discourage biopsy of a clinically suspicious lesion. Electronically Signed By: Maria Esther norton/jeremiah:09/18/2018 15:41:58 copy to: JAIR HUITRON letter sent: Normal Exam ACR BI-RADS Category 1: Negative 3341F
== END ==
PROVIDERS: PCP Family Medicine; Visit Provider Family Medicine
DX: Z12.31 Encounter for screening mammogram for malignant neoplasm of breast (principal)
CPT/HCPCS: 77063; 77067

== ENCOUNTER → 2020-10-28 16:32 | Outpatient (CLI) | payer MEDICARE, OTHER, SELFPAY ==
[2018-03-16 03:05] VITALS: BMI 27.7
--- NOTE | 2020-10-28 16:34 | DI.MG.S_ITS ---
BILATERAL DIGITAL SCREENING MAMMOGRAM 3D/2D WITH CAD: 10/28/2020 CLINICAL: Routine screening. Comparison is made to exams dated: 09/18/2018 mammogram, 03/13/2017 mammogram, and 01/11/2016 mammogram - [facility]. The tissue of both breasts is heterogeneously dense. This may lower the sensitivity of mammography. Current study was also evaluated with a Computer Aided Detection (CAD) system. No significant masses, calcifications, or other findings are seen in either breast. There has been no significant interval change. IMPRESSION: NEGATIVE There is no mammographic evidence of malignancy. A 1 year screening mammogram is recommended. This exam was interpreted at Station ID: [id number]. NOTE: For mammograms, a report in lay terms will be sent to the patient. Approximately 15% of breast malignancies will not be visualized mammographically. In the management of a palpable breast mass, a negative mammogram must not discourage biopsy of a clinically suspicious lesion. Electronically Signed By: Andre quarles/jeremiah:10/28/2020 17:01:33 copy to: JAIR HUITRON letter sent: Normal Exam ACR BI-RADS Category 1: Negative 3341F
== END ==
PROVIDERS: PCP Family Medicine; Referring Provider Family Medicine; Visit Provider Family Medicine
DX: Z12.31 Encounter for screening mammogram for malignant neoplasm of breast (principal)
CPT/HCPCS: 77063; 77067

== ENCOUNTER → 2022-01-17 15:42 | Outpatient (CLI) | payer MEDICARE, OTHER, SELFPAY ==
[2018-03-16 03:05] VITALS: BMI 27.7
--- NOTE | 2022-01-17 15:43 | DI.MG.S_ITS ---
BILATERAL DIGITAL SCREENING MAMMOGRAM 3D/2D WITH CAD: 01/17/2022 CLINICAL: Routine screening. Comparison is made to exams dated: 10/28/2020 mammogram, 09/18/2018 mammogram, and 03/13/2017 mammogram - [facility]. There are scattered areas of fibroglandular density in both breasts (category b / 25%-50% glandular tissue). Current study was also evaluated with a Computer Aided Detection (CAD) system. No significant masses, calcifications, or other findings are seen in either breast. There has been no significant interval change. IMPRESSION: NEGATIVE There is no mammographic evidence of malignancy. A 1 year screening mammogram is recommended. Based on the Tyrer Cuzick model (a risk assessment model) the patient's lifetime risk is 3.9% and her 10 year risk is 2.2%. According to the ACR, ACS, and NCCN guidelines, an annual breast MRI exam along with mammogram is recommended if the patient's lifetime risk is 20% or greater. This exam was interpreted at Station ID: [id number]. NOTE: For mammograms, a report in lay terms will be sent to the patient. Approximately 15% of breast malignancies will not be visualized mammographically. In the management of a palpable breast mass, a negative mammogram must not discourage biopsy of a clinically suspicious lesion. Electronically Signed By: Jean massey/jeremiah:01/18/2022 09:31:18 copy to: JAIR HUITRON letter sent: Normal Exam ACR BI-RADS Category 1: Negative 3341F
== END ==
PROVIDERS: PCP Family Medicine; Referring Provider Specialist; Visit Provider Specialist
DX: Z12.31 Encounter for screening mammogram for malignant neoplasm of breast (principal)
CPT/HCPCS: 77063; 77067

== ENCOUNTER → 2023-07-30 15:23 | Outpatient (CLI) | payer OTHER, SELFPAY ==
[2018-03-16 03:05] VITALS: BMI 27.7
--- NOTE | 2023-07-30 15:29 | DI.MG.S_ITS ---
BILATERAL DIGITAL SCREENING MAMMOGRAM 3D/2D WITH CAD: 07/30/2023 CLINICAL: Routine screening. Comparison is made to exams dated: 01/17/2022 mammogram, 10/28/2020 mammogram, and 09/18/2018 mammogram - [facility]. Both breasts are heterogeneously dense, which may obscure small masses (category c / 51-75% glandular tissue). Current study was also evaluated with a Computer Aided Detection (CAD) system. No significant masses, calcifications, or other findings are seen in either breast. There has been no significant interval change. IMPRESSION: NEGATIVE There is no mammographic evidence of malignancy. A 1 year screening mammogram is recommended. Based on the Tyrer Cuzick model (a risk assessment model) the patient's lifetime risk is 5.3% and her 10 year risk is 3.4%. According to the ACR, ACS, and NCCN guidelines, an annual breast MRI exam along with mammogram is recommended if the patient's lifetime risk is 20% or greater. This exam was interpreted at Station ID: [id number]. NOTE: For mammograms, a report in lay terms will be sent to the patient. Approximately 15% of breast malignancies will not be visualized mammographically. In the management of a palpable breast mass, a negative mammogram must not discourage biopsy of a clinically suspicious lesion. Electronically Signed By: Nathan odom/[email or web address]:08/01/2023 10:58:04 copy to: JAIR HUITRON letter sent: Normal Exam ACR BI-RADS Category 1: Negative [id number]
== END ==
PROVIDERS: PCP Family Medicine; Referring Provider Family Medicine; Visit Provider Family Medicine
DX: Z12.31 Encounter for screening mammogram for malignant neoplasm of breast (principal); R92.333 Mammographic heterogeneous density, bilateral breasts
CPT/HCPCS: 77063; 77067